=== PATIENT | female | born 1950 | race African-American/Black ===

== ENCOUNTER 2025-01-03 07:48 | Inpatient (IN) | payer OTHER, MEDICAID ==
[~2025-01-03] VITALS: Ht 165.1 cm; Wt 127.3 kg
[~2025-01-03 07:48] MED LIST: AMLO1TAB22 PO; HYDR-4798 PO
[2025-01-03 07:50] VITALS: PULSE 95; RESP 23; O2SAT 99
[2025-01-03] MEDS ORDERED: ALBUTEROL SULF 2.5 MG/0.5ML(0.5%) NEB SOLN NEB PRN (08:00)
[2025-01-03] MEDS ORDERED: DEXTROSE (50%) 50ML SYRG IV PRN (08:00)
[2025-01-03] MEDS ORDERED: IPRATROPIUM BROM 0.5 MG/2.5ML INH SOL NEB PRN (08:00)
[2025-01-03] MEDS ORDERED: CLON0.1T PO (08:01)
[2025-01-03] MEDS ORDERED: LEVO-177 PO (08:01)
[2025-01-03] MEDS ORDERED: ATOR20TA50 PO (08:01)
--- NOTE | 2025-01-03 08:05 | DVHHP2 ---
History of Present Illness Reason for Visit: Failure to thrive History of Present Illness Lexi Harris is a 74-year-old female with past medical history of hypertension, hyperlipidemia, diabetes type 2, asthma, and heart failure who presents to the ED with failure to thrive. Patient was a direct admit from [facility]. Patient is currently complaining of bilateral lower extremity pain states that it is 8/10 pressure-like and constant. She denies any recent trauma or injury. She states for about several months she has been having a poor appetite with no recent stressors or changes in her life. She also states that she walks without a walker however she attempts to try to use one when she needs to. She currently denies smoking, drug use, and alcohol use. Patient denies chest pain, shortness of breath, fever, chills, abdominal pain, nausea, vomiting, diarrhea, wheezing, recent ingestion of spoiled food, lightheadedness and dizziness. Patient also reports she is unsure when her last bowel movement was. Cardiovascular: CHF, HTN, hyperipidemia Pulmonary: Asthma Endocrine: Diabetes Family History: None Smoke: No ALCOHOL: none Drugs: None Domestic Violence: Neg Review of Systems Constitutional: Yes: Other (Poor appetite) Musculoskeletal: foot pain Allergies: Coded Allergies: NO KNOWN ALLERGIES (Unverified , 01/03/25) Medications Current Medications Medications Dose Ordered Sig/Ash Route Start Time Stop Time Status Last Admin Dose Admin Acetaminophen/ Hydrocodone Bitart 1 tab Q4HP PRN PO 01/03/25 08:00 UNV Ondansetron HCl 4 mg Q4HP PRN IV 01/03/25 08:00 UNV Enoxaparin Sodium 30 mg DAILY SC 01/03/25 10:00 UNV Acetaminophen 650 mg Q6HP PRN PO 01/03/25 08:00 UNV Colchicine 0.6 mg DAILY PO 01/03/25 10:00 UNV Ferrous Sulfate 325 mg BIDWM PO 01/03/25 08:00 UNV Diagnostic Test (Pha) 1 strip ACHS 01/03/25 11:30 UNV Insulin Human Regular ACHS SC 01/03/25 11:30 UNV Dextrose 50 ml UD PRN IV 01/03/25 08:00 UNV Albuterol 2.5 mg Q4HPRN PRN NEB 01/03/25 08:00 UNV Ipratropium [place] 0.5 mg Q4HPRN PRN NEB 01/03/25 08:00 UNV Exam General Appearance: Alert, Oriented X3, Cooperative, No acute distress HEENT: Atraumatic, PERRLA, EOMI, Mucous membr. moist/pink Respiratory: Clear to auscultation, Normal air movement Cardiovascular: Normal S1, Normal S2, No murmurs Abdominal: Normal bowel sounds, Soft, No tenderness, No hepatospenomegaly, No masses Extremities: No clubbing, No cyanosis, No edema, Normal pulses Neuro: Normal speech, Normal tone, Sensation intact Psych/Mental Status: Mental status NL, Mood NL Labs/Xrays CHEST RADIOGRAPH Indication: ftt Technique: Single frontal view of the chest was obtained Comparison: None FINDINGS: Lines and Tubes: None Lungs: No focal consolidation. Pleura: No effusion. No pneumothorax. Cardiomediastinal contours: Cardiomegaly Bones: No acute osseous abnormality. IMPRESSION: Cardiomegaly with mild CHF. Bilateral lower extremity venous duplex Clinical History: edema Comparison: None Technique: Duplex Doppler evaluation of the deep venous systems of both lower extremities from the common femoral veins to the popliteal veins including color Doppler and spectral/pulsed waveform analysis was performed. Findings: RIGHT SIDE: The common femoral vein demonstrates appropriate compressibility and waveform variability. There is compressibility/patency of the great saphenous vein at the proximal thigh. The femoral vein demonstrates appropriate compressibility and waveform variability. The deep femoral vein demonstrates appropriate compressibility and waveform variability. The popliteal vein demonstrates appropriate compressibility and waveform variability. There is normal compressibility at the tibioperoneal trunk. LEFT SIDE: The common femoral vein demonstrates appropriate compressibility and waveform variability. There is compressibility/patency of the great saphenous vein at the proximal thigh. The femoral vein demonstrates appropriate compressibility and waveform variability. The deep femoral vein demonstrates appropriate compressibility and waveform variability. The popliteal vein demonstrates appropriate compressibility and waveform variability. There is normal compressibility at the tibioperoneal trunk. Impression: No right or left femoropopliteal venous thrombosis. Assessment/Plan Assessment/Plan Assessment Failure to thrive Leukocytosis KASHIF Acute on chronic CHF exacerbation Cardiomegaly History of hypertension History of hyperlipidemia History of Diabetes type 2 History of asthma Plan Admit to med surge IV antibiotics-ceftriaxone Diurese Strict Is&Os Daily weight Resume home medications Dietary consult P.r.n. antihypertensives Hemoglobin A1c ISS and Accu-Cheks P.r.n. respiratory treatments Diet Ultrasound venous bilateral lower extremity Discussed plan of care with patient and nurse Nephrology consult CT abdomen and pelvis ordered Pending UA Plan discussed with: Patient My Orders Orders - LARRY PIPER [employer] Procedure Category Date Status Time Admit ADMIT 01/03/25 Transmitted 07:53 Allergies ARNOLDO 01/03/25 In Process 07:53 Code Status CODE 01/03/25 Transmitted 07:53 Hydrocodone-Acet PHA 01/03/25 Logged 5/325mg Tab ([place] 08:00 Ondansetron Hcl PHA 01/03/25 Logged (Zofran) 08:00 Complete Blood Count LAB 01/04/25 Verified 04:00 Comprehensive LAB 01/04/25 Verified Metabolic Panel 04:00 Enoxaparin Sodium PHA 01/03/25 Logged (Lovenox) 10:00 Acetaminophen Tablet PHA 01/03/25 Logged (Tylenol Tablet) 08:00 Chest Xray 1 View XY 01/03/25 Logged 07:55 Bilat Lower Dvt US 01/03/25 Logged 07:55 * Dietary Consult CONS 01/03/25 Transmitted 07:55 Colchicine (Colcrys) PHA 01/03/25 Logged 10:00 Ferrous Sulfate Tablet PHA 01/03/25 Logged 08:00 Glucose Blood PHA 01/03/25 Logged (Accu-Chek Comfort 11:30 Insulin R (Human) PHA 01/03/25 Logged (Insulin R) 11:30 Dextrose 50% Syringe PHA 01/03/25 Logged 08:00 Hemoglobin A1c LAB 01/03/25 Logged 07:56 Consistent DIET 01/03/25 Transmitted Carb(Ccho)Diabetes Breakfast Albuterol Medneb PHA 01/03/25 Logged (Ventolin Medneb) 08:00 Ipratropium Medneb PHA 01/03/25 Logged (Atrovent Medneb) 08:00 Strict I & O ARNOLDO 01/03/25 In Process 07:56 Daily Weight ARNOLDO 01/03/25 In Process 07:56 B-Type Natriuretic LAB 01/03/25 Logged Peptide 08:01 Complete Blood Count LAB 01/03/25 Logged 08:01 Comprehensive LAB 01/03/25 Logged Metabolic Panel 08:01 Urinalysis LAB 01/03/25 Logged 08:01 Electrocardigram EKG 01/03/25 Logged 08:01 Vitamin D 25-Hydroxy LAB 01/03/25 Verified D2 + D3 08:01 Vitamin B1 (Thiamine) LAB 01/03/25 Verified 08:01 Thyroid Stimulating LAB 01/03/25 Verified Hormone 08:01 Date of Service: Jan 03, 2025 Billing Provider: LARRY PIPER Common Visit Codes: [id number] INP/OBS CARE (HIGH) LARRY PIPER Jan 03, 2025 08:05
--- NOTE | 2025-01-03 08:33 | DVH ---
CHEST RADIOGRAPH Indication: ftt Technique: Single frontal view of the chest was obtained Comparison: None FINDINGS: Lines and Tubes: None Lungs: No focal consolidation. Pleura: No effusion. No pneumothorax. Cardiomediastinal contours: Cardiomegaly Bones: No acute osseous abnormality. IMPRESSION: Cardiomegaly with mild CHF.
--- NOTE | 2025-01-03 09:39 | DVH ---
Bilateral lower extremity venous duplex Clinical History: edema Comparison: None Technique: Duplex Doppler evaluation of the deep venous systems of both lower extremities from the common femora l veins to the popliteal veins including color Doppler and spectral/pulsed waveform analysis was perf ormed. Findings: RIGHT SIDE: The common femoral vein demonstrates appropriate compressibility and waveform variability. There is compressibility/patency of the great saphenous vein at the proximal thigh. The femoral vein demonstrates appropriate compressibility and waveform variability. The deep femoral vein demonstrates appropriate compressibility and waveform variability. The popliteal vein demonstrates appropriate compressibility and waveform variability. There is normal compressibility at the tibioperoneal trunk. LEFT SIDE: The common femoral vein demonstrates appropriate compressibility and waveform variability. There is compressibility/patency of the great saphenous vein at the proximal thigh. The femoral vein demonstrates appropriate compressibility and waveform variability. The deep femoral vein demonstrates appropriate compressibility and waveform variability. The popliteal vein demonstrates appropriate compressibility and waveform variability. There is normal compressibility at the tibioperoneal trunk. Impression: No right or left femoropopliteal venous thrombosis.
[2025-01-03 09:52] VITALS: PULSE 92; RESP 18; O2SAT 98
[2025-01-03] MEDS ORDERED: GABA-1250 PO (09:56)
[2025-01-03] MEDS ORDERED: ALLO300T2 PO (09:56)
[2025-01-03] MEDS ORDERED: METO-289 PO (09:56)
[2025-01-03 10:39] LABS: Basophils # (auto) 0.1 10 ^3/uL (0-0.2); Basophils % (auto) 0.7 % (0.0-2.0); Eosinophils # (auto) 0.2 10 ^3/uL (0-0.8); Eosinophils % (auto) 1.8 % (0.0-7.0); Hematocrit 38.2 % (36.0-46.0); Hemoglobin 12.1 g/dL (12.2-16.2); Lymphocytes # (auto) 2.2 10 ^3/uL (0.4-5.4); Lymphocytes % (auto) 19.6 % (10.0-50.0); Mean Corpuscular Hemoglobin 28.7 pg (28.0-32.0); Mean Corpuscular Hgb Conc. 31.7 g/dL (32.0-36.0); Mean Corpuscular Volume 90.4 fL (80.0-100.0); Monocytes # (auto) 1.4 10 ^3/uL (0-1.3); Monocytes % (auto) 12.3 % (0.0-12.0); Neutrophils # (auto) 7.3 10 ^3/uL (1.6-8.6); Neutrophils % (auto) 65.6 % (37.0-80.0); Nucleated Red Blood Cells % 0.1 %; Platelet Count (auto) 257 10^3/uL (140-450); Red Blood Cells 4.23 10^6/uL (4.0-5.20); Red Cell Distribution Width 17.3 % (11.8-14.3); White Blood Cell 11.1 10^3/uL (4.4-10.8)
[2025-01-03 10:48] VITALS: BP 151/100; PULSE 108; RESP 17; RESP 18; TEMP 98.5; O2SAT 94
[2025-01-03 10:58] LABS: Alanine Aminotransferase 19 U/L (7-40); Albumin 4.4 g/dL (3.2-4.8); Calcium 9.7 mg/dL (8.7-10.4); Chloride 105 mmol/L (98-107)
[2025-01-03 10:59] LABS: Anion Gap 8 (5-15); Aspartate Aminotransferase 14 U/L (13-40); BUN/Creatinine Ratio 17.2 (10.0-20.0); Bilirubin, Total 0.7 mg/dL (0.2-1.0); Carbon Dioxide 22 mmol/L (20-31); Potassium 4.2 mmol/L (3.5-5.1)
[2025-01-03] MEDS: ENOXAPARIN SOD 30 MG/0.3 ML SYRINGE SC SCH (11:00)
[2025-01-03] MEDS: FERROUS SULFATE 325mg EC TAB PO SCH (11:00)
[2025-01-03] MEDS: COLCHICINE 0.6 MG CAP PO SCH (11:00)
[2025-01-03] MEDS: LEVOTHYROXINE SODIUM 88 MCG TAB PO ONE (11:01)
[2025-01-03] MEDS: FUROSEMIDE 40 MG/4 ML VIAL IV SCH (11:01)
[2025-01-03 11:02] LABS: Alkaline Phosphatase 172 U/L (46-116); Blood Urea Nitrogen 27 mg/dL (9-23); Glucose 190 mg/dL (74-106); Sodium 135 mmol/L (136-145); Total Protein 8.5 g/dL (5.7-8.2)
[2025-01-03] MEDS ORDERED: ASPI-543 PO (11:20)
[2025-01-03] MEDS ORDERED: ALBU2TAB11 PO (11:20)
[2025-01-03] MEDS ORDERED: GLIM4TAB42 PO (11:20)
[2025-01-03] MEDS ORDERED: DIPH50CA31 PO (11:20)
[2025-01-03] MEDS ORDERED: CHOL500033 PO (11:20)
[2025-01-03] MEDS ORDERED: POTA-36 PO (11:20)
[2025-01-03] MEDS ORDERED: LORA-622 PO (11:20)
[2025-01-03] MEDS: ACCU-CHEK COMFORT CURVE STRIP VI SCH (11:22)
[2025-01-03] MEDS: cefTRIAXone 1GM/50ML D5W 50 ML IV ONE (12:01)
[2025-01-03] MEDS: InsuLIN REG 1unit/0.01ml Soln (100units/ml) SC SCH (12:03)
--- NOTE | 2025-01-03 12:08 | DVH ---
CT ABDOMEN AND PELVIS WITHOUT CONTRAST CLINICAL HISTORY: ftt TECHNIQUE: Multiple contiguous axial images of the abdomen and pelvis without intravenous contrast. T he images were reformatted degenerate coronal and sagittal reconstructions. All CT scans at this medical facility are performed using dose modulation techniques as appropriate t o a performed exam including the following:Automated exposure control was utilized; adjustment of the MA and/or KV according to patient size; and use of iterative reconstruction technique. Radiation Dose Information: CT Dose: CTDI volume is 27.84 mGy. Dose-length product is 1502.29 mGy*cm Comparison: None FINDINGS: Evaluation of the abdomen and pelvis is limited without intravenous contrast. Gallbladder is surgically absent. The liver, pancreas, kidneys, adrenal glands, and spleen appear within normal limits. There is no gross evidence of abdominal lymphadenopathy. There is no free fluid or free air. There is a small fat containing umbilical hernia. The stomach grossly appears unremarkable. The small and large bowel loops demonstrate normal caliber without evidence of bowel obstruction.. There are multiple diverticula in the colon without evidenc e of acute diverticulitis. A normal appearing appendix is seen in the right lower quadrant abdomen. The abdominal aorta and IVC appear within normal limits. The bladder appears unremarkable for the degree of distention. Pelvic organ appears within normal krishnan its. There is no gross evidence of a pelvic mass. There is no free fluid collection. Lung bases are clear. There is no acute osseous abnormality. IMPRESSION: 1. There is no acute process in the abdomen and pelvis. 2. Distal colon diverticulosis without evidence of acute diverticulitis. HS:Y
[2025-01-03 13:00] VITALS: BP 151/100; PULSE 108; RESP 17; TEMP 98.5; O2SAT 94
[2025-01-03] MEDS: cloNIDine HCL 0.1 MG TAB PO SCH (13:30)
[2025-01-03] MEDS: SODIUM CHLORIDE 0.9% 1,000 ML IV ONE (13:31)
[2025-01-03] MEDS: HYDROcodone-ACET 5/325MG TAB PO PRN (13:33)
[2025-01-03 14:16] LABS: Urine Bacteria FEW /hpf (None Seen); Urine Blood Negative /uL (Negative); Urine Clarity Clear (Clear); Urine Color Light-Yellow (Yellow); Urine Protein, UAD 1+ (Negative); Urine Specific Gravity 1.009 (1.001-1.035); Urine Squamous Epithelial Cell FEW /hpf (<5); Urine Urobilinogen Normal (Negative); Urine WBC < 1 /HPF (0-5); Urine pH 5.5 (5.0-9.0)
[2025-01-03 16:43] VITALS: BP 139/61; PULSE 113; RESP 18; TEMP 99; O2SAT 94
--- NOTE | 2025-01-03 17:03 | DVH ---
PROCEDURE: MRI LUMBAR SPINE WO CONTRAST INDICATION: Lumbar stenosis Exam Date: 01/03/2025 04:14 PM COMPARISON: None TECHNIQUE: MRI lumbar spine without intravenous contrast. FINDINGS: Grade 1 anterolisthesis of L4 on L5. There are degenerative endplate changes including modic endpla te changes with anterior and lateral osteophytes throughout the lumbar spine. Marrow signal is diffus dinh low. Focal high signal in the right iliac crest. The visualized distal spinal cord and conus medu llaris are within normal limits. The conus medullaris appears to terminate within normal limits. Th e visualized retroperitoneal and paraspinal soft tissues are unremarkable. The following axial levels are detailed below: T12-L1: There is a mild circumferential disc bulge. No significant central canal or neuroforaminal s tenosis. L1-L2: There is a mild circumferential disc bulge. No significant central canal or neuroforaminal s tenosis. L2-L3: There is a severe circumferential disc bulge complicated by facet arthropathy associated wit h mild to moderate right and moderate to severe left neuroforaminal stenosis. No significant central canal stenosis. L3-L4: There is a moderate circumferential disc bulge complicated by facet arthropathy associated w ith mild to moderate bilateral neuroforaminal stenosis. No significant central canal stenosis. L4-L5: There is a moderate circumferential disc bulge complicated by facet arthropathy associated w ith moderate bilateral neuroforaminal stenosis. Central canal measures 9 mm. L5-S1: There is a moderate circumferential disc bulge complicated by facet arthropathy associated wi th mild to moderate bilateral neuroforaminal stenosis. No significant central canal stenosis. IMPRESSION: 1. Multilevel degenerative disease. Grade 1 anterolisthesis of L4 on L5. Mild central canal stenosis L4-5. Neural foraminal stenosis worst at L2-3 as above. Marrow signal is diffusely low. Correlate for hematologic disorder. Focal high signal in the right iliac crest. A lesion is not excluded. This cou ld be further evaluated with whole-body bone scan. HS:Y
[2025-01-03] MEDS: ONDANSETRON HCL 4 MG/2 ML VIAL IV PRN (19:39)
--- NOTE | 2025-01-03 19:46 | DVHINCON2 ---
Date of service: Jan 03, 2025 Allergies: Coded Allergies: NO KNOWN ALLERGIES (Unverified , 01/03/25) Home Meds Reported Medications Albuterol Sulfate (Albuterol Sulfate) 2 Mg Tab, 90 MCG PO Q6HR, MG 01/03/25 Diphenhydramine Hcl (BANOPHEN) 50 Mg Cap, 25 MG PO Q6HR, CAP 01/03/25 Cholecalciferol (Vitamin D-3) 5,000 Unit Cap, 1000 UNIT PO DAILY, CAP 01/03/25 Aspirin (Aspir-Low) 81 Mg Tab, 81 MG PO DAILY for 30 Days, MG 01/03/25 Glimepiride (Glimepiride) 4 Mg Tab, 4 MG PO DAILY for 30 Days, MG 01/03/25 Potassium Chloride (POTASSIUM CHLORIDE CR) 10 Meq Tb, 8 MEQ PO DAILY, TAB 01/03/25 Loratadine (Claritin) 10 Mg Tab, 1 TAB PO DAILY, #30 TAB 5 Refills 01/03/25 Gabapentin (Gabapentin) 300 Mg Cap, 1 CAP PO TID 01/03/25 Allopurinol (Allopurinol) 300 Mg Tab, 1 TAB PO DAILY 01/03/25 Metoprolol Succinate (Metoprolol Succinate Er) 50 Mg Tab, 1 TAB PO DAILY 01/03/25 Atorvastatin Calcium (ATORVASTATIN CALCIUM) 20 Mg Tab, 20 MG PO DAILY 01/03/25 Clonidine Hydrochloride (Clonidine Hcl) 0.1 Mg Tab, 0.2 MG PO TID 01/03/25 Levothyroxine Sodium (Levothyroxine Sodium) 88 Mcg Tab, 1 TAB PO DAILY 01/03/25 Current Medications Current Medications Medications (Trade) Dose Ordered Sig/Ash Route PRN Reason Start Time Stop Time Status Last Admin Acetaminophen/ Hydrocodone Bitart ([place] 5/325MG Tab) 1 tab Q4HP PRN PO MODERATE PAIN (4-6 PAIN SCALE) 01/03/25 08:00 01/03/25 13:33 Ondansetron HCl (Zofran) 4 mg Q4HP PRN IV NAUSEA / VOMITING 01/03/25 08:00 01/03/25 19:39 Enoxaparin Sodium (Lovenox) 30 mg DAILY SC 01/03/25 10:00 01/03/25 11:00 Acetaminophen (Tylenol Tablet) 650 mg Q6HP PRN PO PAIN SCALE 1-3 OR TEMP>100.4 01/03/25 08:00 Colchicine (Colcrys) 0.6 mg DAILY PO 01/03/25 10:00 01/03/25 11:00 Ferrous Sulfate 325 mg BIDWM PO 01/03/25 08:00 01/03/25 18:46 Diagnostic Test (Pha) (Accu-Chek Comfort Curve T) 1 strip ACHS 01/03/25 11:30 01/03/25 17:00 Insulin Human Regular (InsuLIN R) ACHS SC 01/03/25 11:30 01/03/25 17:00 Dextrose 50 ml UD PRN IV Blood Sugar LESS THAN 60 01/03/25 08:00 Albuterol (Ventolin Medneb) 2.5 mg Q4HPRN PRN NEB SHORTNESS OF BREATH 01/03/25 08:00 Ipratropium [place] (Atrovent Medneb) 0.5 mg Q4HPRN PRN NEB SHORTNESS OF BREATH 01/03/25 08:00 Furosemide (Lasix Injection) 40 mg DAILY IV 01/03/25 10:00 01/03/25 11:01 Hydralazine HCl (Apresoline Injection) 10 mg Q6HP PRN IV SBP>150 01/03/25 10:00 Atorvastatin Calcium (Lipitor) 20 mg HS PO 01/03/25 22:00 Clonidine HCl (Catapres Tablet) 0.1 mg TID PO 01/03/25 14:00 01/03/25 13:30 Levothyroxine Sodium (Synthroid Tablet) 88 mcg DAILY@0600 PO 01/04/25 06:00 Ceftriaxone Sodium 50 ml @ 100 mls/hr DAILY@09 IV 01/04/25 09:00 H&P Exam Vital Signs/I&O Vital Sign Date Time Temp Pulse Resp B/P (MAP) Pulse Ox O2 Delivery O2 Flow Rate FiO2 01/03/25 16:43 99.0 113 18 139/61 (87) 94 99.0 01/03/25 10:48 Room Air* 0 21 Labs/Diagnostic Data Labs/Diagnostic Data Laboratory Tests Test 01/03/25 16:01 01/03/25 13:45 01/03/25 11:13 01/03/25 10:23 Range/Units Urine Color Light-yellow Yellow Urine Clarity Clear Clear Urine pH 5.5 5.0-9.0 Urine Specific [place] 1.009 1.001-1.035 Urine Protein 1+ H Negative Urine Ketones Negative Negative Urine Blood Negative Negative /uL Urine Nitrite Negative Negative Urine Bilirubin Negative Negative Urine Urobilinogen Normal Negative mg/dL Urine Leukocyte Esterase Negative Negative /uL Urine RBC <1 0 - 4 /hpf Urine Microscopic WBC < 1 0-5 /HPF Urine Squamous Epithelial Cells Few <5 /hpf Urine Bacteria Few H None Seen /hpf Urine Glucose Normal Normal mg/dL POC Glucose 193 H 70-106 mg/dl White Blood Count 11.1 H 4.4-10.8 10^3/uL Red Blood Count 4.23 4.0-5.20 10^6/uL Hemoglobin 12.1 L 12.2-16.2 g/dL Hematocrit 38.2 36.0-46.0 % Mean Corpuscular Volume 90.4 80.0-100.0 fL Mean Corpuscular Hemoglobin 28.7 28.0-32.0 pg Mean Corpuscular Hemoglobin Concent 31.7 L 32.0-36.0 g/dL Red Cell Distribution Width 17.3 H 11.8-14.3 % Platelet Count 257 140-450 10^3/uL Mean Platelet Volume 9.2 6.9-10.8 fL Neutrophils (%) (Auto) 65.6 37.0-80.0 % Lymphocytes (%) (Auto) 19.6 10.0-50.0 % Monocytes (%) (Auto) 12.3 H 0.0-12.0 % Eosinophils (%) (Auto) 1.8 0.0-7.0 % Basophils (%) (Auto) 0.7 0.0-2.0 % Neutrophils # (Auto) 7.3 1.6-8.6 10 ^3/uL Lymphocytes # (Auto) 2.2 0.4-5.4 10 ^3/uL Monocytes # (Auto) 1.4 H 0-1.3 10 ^3/uL Eosinophils # (Auto) 0.2 0-0.8 10 ^3/uL Basophils # (Auto) 0.1 0-0.2 10 ^3/uL Nucleated Red Blood Cells 0.1 % Sodium Level 135 L 136-145 mmol/L Potassium Level 4.2 3.5-5.1 mmol/L Chloride Level 105 98-107 mmol/L Carbon Dioxide Level 22 20-31 mmol/L Anion Gap 8 5-15 Blood Urea Nitrogen 27 H 9-23 mg/dL Creatinine 1.57 H 0.550-1.02 mg/dL Glomerular Filtration Rate Calc 35 >90 mL/min BUN/Creatinine Ratio 17.2 10.0-20.0 Serum Glucose 190 H 74-106 mg/dL Hemoglobin A1c 6.8 H <5.7 % A1C Calcium Level 9.7 8.7-10.4 mg/dL Total Bilirubin 0.7 0.2-1.0 mg/dL Aspartate Amino Transferase (AST) 14 13-40 U/L Alanine Aminotransferase (ALT) 19 7-40 U/L Alkaline Phosphatase 172 H 46-116 U/L B-Type Natriuretic Peptide 82.47 0-100 pg/mL Total Protein 8.5 H 5.7-8.2 g/dL Albumin 4.4 3.2-4.8 g/dL Vitamin B12 Level 339 211-911 pg/mL Thyroid Stimulating Hormone (TSH) 2.14 0.55-4.78 uIU/mL Assessment Please see above consult dictated Plan discussed with: AMINA Tariq MD Jan 03, 2025 19:46
--- NOTE | 2025-01-03 20:08 | DVHINCON2 ---
Date of service: Jan 03, 2025 Reason for Consultation kwame History of Present Illness 74 years old female with past medical history of hypertension, dyslipidemia, diabetes, morbid obesity, heart failure,, Chronic kidney disease presenting with chief complaints of unable to walk... Her [id number] is bedside she me ntions patient's legs gave up and she was unable to walk No baseline renal function available Past Medical History As per HPI Past Surgical History As per HPI Allergies: Coded Allergies: NO KNOWN ALLERGIES (Unverified , 01/03/25) Home Meds Reported Medications Albuterol Sulfate (Albuterol Sulfate) 2 Mg Tab, 90 MCG PO Q6HR, MG 01/03/25 Diphenhydramine Hcl (BANOPHEN) 50 Mg Cap, 25 MG PO Q6HR, CAP 01/03/25 Cholecalciferol (Vitamin D-3) 5,000 Unit Cap, 1000 UNIT PO DAILY, CAP 01/03/25 Aspirin (Aspir-Low) 81 Mg Tab, 81 MG PO DAILY for 30 Days, MG 01/03/25 Glimepiride (Glimepiride) 4 Mg Tab, 4 MG PO DAILY for 30 Days, MG 01/03/25 Potassium Chloride (POTASSIUM CHLORIDE CR) 10 Meq Tb, 8 MEQ PO DAILY, TAB 01/03/25 Loratadine (Claritin) 10 Mg Tab, 1 TAB PO DAILY, #30 TAB 5 Refills 01/03/25 Gabapentin (Gabapentin) 300 Mg Cap, 1 CAP PO TID 01/03/25 Allopurinol (Allopurinol) 300 Mg Tab, 1 TAB PO DAILY 01/03/25 Metoprolol Succinate (Metoprolol Succinate Er) 50 Mg Tab, 1 TAB PO DAILY 01/03/25 Atorvastatin Calcium (ATORVASTATIN CALCIUM) 20 Mg Tab, 20 MG PO DAILY 01/03/25 Clonidine Hydrochloride (Clonidine Hcl) 0.1 Mg Tab, 0.2 MG PO TID 01/03/25 Levothyroxine Sodium (Levothyroxine Sodium) 88 Mcg Tab, 1 TAB PO DAILY 01/03/25 Current Medications Current Medications Medications (Trade) Dose Ordered Sig/Ash Route PRN Reason Start Time Stop Time Status Last Admin Acetaminophen/ Hydrocodone Bitart (Lamar 5/325MG Tab) 1 tab Q4HP PRN PO MODERATE PAIN (4-6 PAIN SCALE) 01/03/25 08:00 01/03/25 13:33 Ondansetron HCl (Zofran) 4 mg Q4HP PRN IV NAUSEA / VOMITING 01/03/25 08:00 01/03/25 19:39 Enoxaparin Sodium (Lovenox) 30 mg DAILY SC 01/03/25 10:00 01/03/25 11:00 Acetaminophen (Tylenol Tablet) 650 mg Q6HP PRN PO PAIN SCALE 1-3 OR TEMP>100.4 01/03/25 08:00 Colchicine (Colcrys) 0.6 mg DAILY PO 01/03/25 10:00 01/03/25 11:00 Ferrous Sulfate 325 mg BIDWM PO 01/03/25 08:00 01/03/25 18:46 Diagnostic Test (Pha) (Accu-Chek Comfort Curve T) 1 strip ACHS 01/03/25 11:30 01/03/25 17:00 Insulin Human Regular (InsuLIN R) ACHS SC 01/03/25 11:30 01/03/25 17:00 Dextrose 50 ml UD PRN IV Blood Sugar LESS THAN 60 01/03/25 08:00 Albuterol (Ventolin Medneb) 2.5 mg Q4HPRN PRN NEB SHORTNESS OF BREATH 01/03/25 08:00 Ipratropium [place] (Atrovent Medneb) 0.5 mg Q4HPRN PRN NEB SHORTNESS OF BREATH 01/03/25 08:00 Furosemide (Lasix Injection) 40 mg DAILY IV 01/03/25 10:00 01/03/25 11:01 Hydralazine HCl (Apresoline Injection) 10 mg Q6HP PRN IV SBP>150 01/03/25 10:00 Atorvastatin Calcium (Lipitor) 20 mg HS PO 01/03/25 22:00 Clonidine HCl (Catapres Tablet) 0.1 mg TID PO 01/03/25 14:00 01/03/25 13:30 Levothyroxine Sodium (Synthroid Tablet) 88 mcg DAILY@0600 PO 01/04/25 06:00 Ceftriaxone Sodium 50 ml @ 100 mls/hr DAILY@09 IV 01/04/25 09:00 Social History Denies any Review of Systems As documented in HPI H&P Exam Vital Signs/I&O Vital Sign Date Time Temp Pulse Resp B/P (MAP) Pulse Ox O2 Delivery O2 Flow Rate FiO2 01/03/25 16:43 99.0 113 18 139/61 (87) 94 99.0 01/03/25 10:48 Room Air* 0 21 Physical Exam General-not in any distress, morbid obesity HEENT-normocephalic, no icterus, no pallor, neck supple Respiratory-fair air entry bilateral, [id number] heard, Abdominal-soft, nontender, nondistended Musculoskeletal-no pedal edema, no calf tenderness Genitourinary-deferred Neuro-awake alert oriented x3, Psychiatric-not agitated, cooperative, Labs/Diagnostic Data Labs/Diagnostic Data Laboratory Tests Test 01/03/25 16:01 01/03/25 13:45 01/03/25 11:13 01/03/25 10:23 Range/Units Urine Color Light-yellow Yellow Urine Clarity Clear Clear Urine pH 5.5 5.0-9.0 Urine Specific [place] 1.009 1.001-1.035 Urine Protein 1+ H Negative Urine Ketones Negative Negative Urine Blood Negative Negative /uL Urine Nitrite Negative Negative Urine Bilirubin Negative Negative Urine Urobilinogen Normal Negative mg/dL Urine Leukocyte Esterase Negative Negative /uL Urine RBC <1 0 - 4 /hpf Urine Microscopic WBC < 1 0-5 /HPF Urine Squamous Epithelial Cells Few <5 /hpf Urine Bacteria Few H None Seen /hpf Urine Glucose Normal Normal mg/dL POC Glucose 193 H 70-106 mg/dl White Blood Count 11.1 H 4.4-10.8 10^3/uL Red Blood Count 4.23 4.0-5.20 10^6/uL Hemoglobin 12.1 L 12.2-16.2 g/dL Hematocrit 38.2 36.0-46.0 % Mean Corpuscular Volume 90.4 80.0-100.0 fL Mean Corpuscular Hemoglobin 28.7 28.0-32.0 pg Mean Corpuscular Hemoglobin Concent 31.7 L 32.0-36.0 g/dL Red Cell Distribution Width 17.3 H 11.8-14.3 % Platelet Count 257 140-450 10^3/uL Mean Platelet Volume 9.2 6.9-10.8 fL Neutrophils (%) (Auto) 65.6 37.0-80.0 % Lymphocytes (%) (Auto) 19.6 10.0-50.0 % Monocytes (%) (Auto) 12.3 H 0.0-12.0 % Eosinophils (%) (Auto) 1.8 0.0-7.0 % Basophils (%) (Auto) 0.7 0.0-2.0 % Neutrophils # (Auto) 7.3 1.6-8.6 10 ^3/uL Lymphocytes # (Auto) 2.2 0.4-5.4 10 ^3/uL Monocytes # (Auto) 1.4 H 0-1.3 10 ^3/uL Eosinophils # (Auto) 0.2 0-0.8 10 ^3/uL Basophils # (Auto) 0.1 0-0.2 10 ^3/uL Nucleated Red Blood Cells 0.1 % Sodium Level 135 L 136-145 mmol/L Potassium Level 4.2 3.5-5.1 mmol/L Chloride Level 105 98-107 mmol/L Carbon Dioxide Level 22 20-31 mmol/L Anion Gap 8 5-15 Blood Urea Nitrogen 27 H 9-23 mg/dL Creatinine 1.57 H 0.550-1.02 mg/dL Glomerular Filtration Rate Calc 35 >90 mL/min BUN/Creatinine Ratio 17.2 10.0-20.0 Serum Glucose 190 H 74-106 mg/dL Hemoglobin A1c 6.8 H <5.7 % A1C Calcium Level 9.7 8.7-10.4 mg/dL Total Bilirubin 0.7 0.2-1.0 mg/dL Aspartate Amino Transferase (AST) 14 13-40 U/L Alanine Aminotransferase (ALT) 19 7-40 U/L Alkaline Phosphatase 172 H 46-116 U/L B-Type Natriuretic Peptide 82.47 0-100 pg/mL Total Protein 8.5 H 5.7-8.2 g/dL Albumin 4.4 3.2-4.8 g/dL Vitamin B12 Level 339 211-911 pg/mL Thyroid Stimulating Hormone (TSH) 2.14 0.55-4.78 uIU/mL Assessment Acute kidney injury versus Chronic kidney disease IIIb Diabetes Hypertension Morbid obesity Recommendations Quantify proteinuria CT scan no hydronephrosis No baseline renal function available Avoid NSAIDs SGLT2 inhibitor after discharge Plan discussed with: Patient, Daughter ALONJOHNNYCARLOSAMINA BARNEY Jan 03, 2025 20:07
[2025-01-03] MEDS: ACETAMINOPHEN 325 MG TAB PO PRN (20:18)
[2025-01-03 21:00] VITALS: BP 150/77; PULSE 123; RESP 20; TEMP 99.2; O2SAT 96
[2025-01-03] MEDS: ATORVASTATIN 20 MG TAB PO SCH (22:36)
[2025-01-04] VITALS (9 sets, daily range): BP systolic 98–163; BP diastolic 48–79; PULSE 89–113; RESP 17–20; TEMP 97.8–99.6; O2SAT 94–100
[2025-01-04 05:56] LABS: Basophils # (auto) 0 10 ^3/uL (0-0.2); Basophils % (auto) 0.4 % (0.0-2.0); Eosinophils # (auto) 0.2 10 ^3/uL (0-0.8); Eosinophils % (auto) 1.8 % (0.0-7.0); Hematocrit 32.9 % (36.0-46.0); Hemoglobin 10.9 g/dL (12.2-16.2); Lymphocytes # (auto) 2.8 10 ^3/uL (0.4-5.4); Lymphocytes % (auto) 28.2 % (10.0-50.0); Mean Corpuscular Hemoglobin 30.1 pg (28.0-32.0); Mean Corpuscular Hgb Conc. 33.2 g/dL (32.0-36.0); Mean Corpuscular Volume 90.8 fL (80.0-100.0); Monocytes # (auto) 1.4 10 ^3/uL (0-1.3); Monocytes % (auto) 14.3 % (0.0-12.0); Neutrophils # (auto) 5.5 10 ^3/uL (1.6-8.6); Neutrophils % (auto) 55.3 % (37.0-80.0); Nucleated Red Blood Cells % 0.1 %; Platelet Count (auto) 232 10^3/uL (140-450); Red Blood Cells 3.63 10^6/uL (4.0-5.20); Red Cell Distribution Width 16.8 % (11.8-14.3); White Blood Cell 9.9 10^3/uL (4.4-10.8)
[2025-01-04] MEDS: LEVOTHYROXINE SODIUM 88 MCG TAB PO SCH (06:01)
[2025-01-04 06:23] LABS: Alanine Aminotransferase 18 U/L (7-40); Anion Gap 11 (5-15); Aspartate Aminotransferase 16 U/L (13-40); BUN/Creatinine Ratio 14.2 (10.0-20.0); Calcium 9.1 mg/dL (8.7-10.4); Carbon Dioxide 20 mmol/L (20-31); Chloride 105 mmol/L (98-107); Potassium 4.5 mmol/L (3.5-5.1); Total Protein 7.8 g/dL (5.7-8.2)
[2025-01-04 06:24] LABS: Bilirubin, Total 0.3 mg/dL (0.2-1.0)
[2025-01-04 06:30] LABS: Alkaline Phosphatase 158 U/L (46-116); Blood Urea Nitrogen 35 mg/dL (9-23); Glucose 146 mg/dL (74-106); Sodium 136 mmol/L (136-145)
[2025-01-04] MEDS: cefTRIAXone 1GM/50ML D5W 50 ML IV SCH (08:33)
--- NOTE | 2025-01-04 11:10 | DVHPN2 ---
Progress Note Date Seen: Jan 04, 2025 Medical Necessity Reason Pt with a Central, PICC or Fol: Yes The following are medically ne: Caal Catheter Subjective Patient reports: Other Review of Systems: Deferred Objective vital signs Vital Sign Date Time Temp Pulse Resp B/P (MAP) Pulse Ox O2 Delivery O2 Flow Rate FiO2 01/04/25 09:32 98 Room Air 0.0 01/04/25 09:32 21 01/04/25 09:00 98.2 98 17 140/65 (90) 98.2 Total Intake and Output 01/03/25 01/03/25 01/04/25 15:00 23:00 07:00 Intake Total 600 ml 500 ml Output Total 502 ml Balance 600 ml -2 ml medications Current Medications Medications Dose Ordered Sig/Ash Route Start Time Stop Time Status Last Admin Dose Admin Acetaminophen/ Hydrocodone Bitart 1 tab Q4HP PRN PO 01/03/25 08:00 01/03/25 13:33 1 TAB Ondansetron HCl 4 mg Q4HP PRN IV 01/03/25 08:00 01/03/25 19:39 4 MG Enoxaparin Sodium 30 mg DAILY SC 01/03/25 10:00 01/04/25 08:35 30 MG Acetaminophen 650 mg Q6HP PRN PO 01/03/25 08:00 01/03/25 20:18 650 MG Ferrous Sulfate 325 mg BIDWM PO 01/03/25 08:00 01/04/25 08:33 325 MG Diagnostic Test (Pha) 1 strip ACHS 01/03/25 11:30 01/04/25 06:11 1 STRIP Insulin Human Regular ACHS SC 01/03/25 11:30 01/03/25 22:33 3 UNITS Dextrose 50 ml UD PRN IV 01/03/25 08:00 Albuterol 2.5 mg Q4HPRN PRN NEB 01/03/25 08:00 Ipratropium [place] 0.5 mg Q4HPRN PRN NEB 01/03/25 08:00 Hydralazine HCl 10 mg Q6HP PRN IV 01/03/25 10:00 Atorvastatin Calcium 20 mg HS PO 01/03/25 22:00 01/03/25 22:36 20 MG Clonidine HCl 0.1 mg TID PO 01/03/25 14:00 01/03/25 22:29 0.1 MG Levothyroxine Sodium 88 mcg DAILY@0600 PO 01/04/25 06:00 01/04/25 06:01 88 MCG Ceftriaxone Sodium 50 ml @ 100 mls/hr DAILY@09 IV 01/04/25 09:00 01/04/25 08:33 100 MLS/HR laboratory and microbiology Laboratory Tests 01/04/25 04:55 Test 01/04/25 04:55 Range/Units Serum Glucose 146 H 74-106 mg/dL Problem List/Assessment/Plan Problem List/Assessment/Plan Acute kidney injury versus Chronic kidney disease IIIb--unknown baseline Diabetes Hypertension Morbid obesity Recommendations Quantify proteinuria,kidney us hold colchicine and lasix ns for 1 liter strict i and o No baseline renal function available Plan discussed with: Patient My Orders My Orders Orders - AMINA PEÑA MD Procedure Category Date Status Time Urine Protein LAB 01/04/25 Logged 11:05 Urine Sodium LAB 01/04/25 Logged 11:05 Urine Creatinine LAB 01/04/25 Logged 11:05 Kidney US 01/04/25 Logged 11:05 Basic Metabolic Panel LAB 01/05/25 Verified 05:00 Basic Metabolic Panel LAB 01/06/25 Verified 05:00 Basic Metabolic Panel LAB 01/07/25 Verified 05:00 Basic Metabolic Panel LAB 01/08/25 Verified 05:00 Basic Metabolic Panel LAB 01/09/25 Verified 05:00 Basic Metabolic Panel LAB 01/10/25 Verified 05:00 Basic Metabolic Panel LAB 01/11/25 Verified 05:00 Sodium Chloride 0.9% PHA 01/04/25 Logged 11:15 AMINA PEÑA MD Jan 04, 2025 11:10
[2025-01-04] MEDS: hydrALAZINE HCL 20 MG/ML VL IV PRN (11:58)
[2025-01-04] MEDS: SODIUM CHLORIDE 0.9% 1,000 ML IV ONE (11:58)
--- NOTE | 2025-01-04 12:45 | DVHPN2 ---
Reviewed: Care Plan, H&P, Labs, Medications, Previous Orders, Radiology Changes from previous H/P or p: No Changes Musculoskeletal: foot pain Objective Vitals Vital Signs Date Time Temp Pulse Resp B/P (MAP) Pulse Ox O2 Delivery O2 Flow Rate FiO2 01/04/25 11:58 157/79 01/04/25 09:32 98 Room Air 0.0 01/04/25 09:32 21 01/04/25 09:00 98.2 98 17 98.2 Intake/Output Intake and Output 01/04/25 07:00 Intake Total 1100 ml Output Total 502 ml Balance 598 ml Intake Oral 800 ml IV Total 300 ml Output Urine Total 500 ml Stool Total 2 ml # Voids 3 Medications Current Medications Medications Dose Ordered Sig/Ash Route Start Time Stop Time Status Last Admin Dose Admin Acetaminophen/ Hydrocodone Bitart 1 tab Q4HP PRN PO 01/03/25 08:00 01/03/25 13:33 1 TAB Ondansetron HCl 4 mg Q4HP PRN IV 01/03/25 08:00 01/03/25 19:39 4 MG Enoxaparin Sodium 30 mg DAILY SC 01/03/25 10:00 01/04/25 08:35 30 MG Acetaminophen 650 mg Q6HP PRN PO 01/03/25 08:00 01/03/25 20:18 650 MG Ferrous Sulfate 325 mg BIDWM PO 01/03/25 08:00 01/04/25 08:33 325 MG Diagnostic Test (Pha) 1 strip ACHS 01/03/25 11:30 01/04/25 11:40 1 STRIP Insulin Human Regular ACHS SC 01/03/25 11:30 01/04/25 11:41 3 UNITS Dextrose 50 ml UD PRN IV 01/03/25 08:00 Albuterol 2.5 mg Q4HPRN PRN NEB 01/03/25 08:00 Ipratropium [place] 0.5 mg Q4HPRN PRN NEB 01/03/25 08:00 Hydralazine HCl 10 mg Q6HP PRN IV 01/03/25 10:00 01/04/25 11:58 10 MG Atorvastatin Calcium 20 mg HS PO 01/03/25 22:00 01/03/25 22:36 20 MG Clonidine HCl 0.1 mg TID PO 01/03/25 14:00 01/03/25 22:29 0.1 MG Levothyroxine Sodium 88 mcg DAILY@0600 PO 01/04/25 06:00 01/04/25 06:01 88 MCG Ceftriaxone Sodium 50 ml @ 100 mls/hr DAILY@09 IV 01/04/25 09:00 01/04/25 08:33 100 MLS/HR Laboratory Results Laboratory Tests 01/04/25 04:55 Chemistry Test 01/04/25 04:55 Albumin 4.0 g/dL (3.2-4.8) Calcium Level 9.1 mg/dL (8.7-10.4) Total Protein 7.8 g/dL (5.7-8.2) LFT Test 01/04/25 04:55 Alanine Aminotransferase (ALT) 18 U/L (7-40) Alkaline Phosphatase 158 U/L (46-116) H Aspartate Amino Transferase (AST) 16 U/L (13-40) Total Bilirubin 0.3 mg/dL (0.2-1.0) Urinalysis Test 01/03/25 13:45 Urine Color Light-yellow (Yellow) Urine Clarity Clear (Clear) Urine pH 5.5 (5.0-9.0) Urine Specific [place] 1.009 (1.001-1.035) Urine Protein 1+ (Negative) H Urine Ketones Negative (Negative) Urine Blood Negative /uL (Negative) Urine Nitrite Negative (Negative) Urine Bilirubin Negative (Negative) Urine Urobilinogen Normal mg/dL (Negative) Urine Leukocyte Esterase Negative /uL (Negative) Urine RBC <1 /hpf (0 - 4) Urine Microscopic WBC < 1 /HPF (0-5) Urine Squamous Epithelial Cells Few /hpf (<5) Urine Bacteria Few /hpf (None Seen) H Urine Glucose Normal mg/dL (Normal) Labs and/or images reviewed: Labs reviewed by me, Image(s) reviewed by me Assessment/Plan Assessment/Plan Transferred from [facility] Failure to thrive Leukocytosis KASHIF nephrology consult appreciate Acute on chronic CHF exacerbation Cardiomegaly Hypertension Hyperlipidemia Diabetes type 2 Asthma Unable to walk: CT head Neurology consult physical therapy Patient's son bedside DVT ruled out Chest x-ray negative CT abdomen pelvis without contrast negative Time 70 minutes Patient is full code Advanced care planning time 20 minutes Plan discussed with: Patient Date of Service: Jan 04, 2025 Billing Provider: ANISA THORNTON MD Common Visit Codes: [id number] INP/OBS CARE(HIGH) ANISA THORNTON MD Jan 04, 2025 12:45
--- NOTE | 2025-01-04 13:20 | DVH ---
INDICATION: kwame TECHNIQUE: Multiple real-time sonographic images of the kidneys and bladder were obtained. COMPARISON: None FINDINGS: The right kidney measures 10.5 cm in length, which is normal in size. There is normal echog enicity of the right kidney. No hydronephrosis. The left kidney measures 11.3 cm in length, which is normal in size. There is normal echogenicity of the left kidney. No hydronephrosis. There is a Caal catheter in the urinary bladder. IMPRESSION: 1. No hydronephrosis. 2. Caal catheter in the urinary bladder.
--- NOTE | 2025-01-04 14:21 | DVH ---
EXAM: CT HEAD WITHOUT CONTRAST INDICATION: GAIT AND STABILITY TECHNIQUE: CT of the head without intravenous contrast. Coronal and sagittal reformatted images are s ubmitted. Radiation Dose : 1. Head: CT Dose: CTDI volume is 65.77 mGy. Dose-length product is 1053.99 mGy*cm The dose indicators for CT are the volume Computed Tomography (CT) Dose Index (CTDIvol) and the Dose Length Product (DLP), and are measured in units of mGy and mGy-cm, respectively. These indicators are not patient dose, but values generated from the CT scanner acquisition factors. The report includes radiation exposure data for exposures received during this examination. All CT scans at this medical facility are performed using dose modulation techniques as appropriate to a performed exam including the following: Automated exposure control was utilized; adjustment of the MA and/or KV according to patient size; and use of iterative reconstruction technique. COMPARISON: None FINDINGS: There is no evidence of acute intracranial hemorrhage, extra-axial collection, mass effect, midline s hift, herniation or hydrocephalus. The ventricles, sulci and cisterns are age appropriate. The dhillon-white differentiation is intact. There is mucosal thickening in the left maxillary sinus. No depressed calvarial fracture. The surrounding soft tissues are unremarkable. IMPRESSION: 1. No evidence of acute intracranial abnormality.
[2025-01-05] VITALS (10 sets, daily range): BP systolic 134–140; BP diastolic 59–91; PULSE 82–123; RESP 16–19; TEMP 97.6–98.9; O2SAT 94–96
[2025-01-05 06:59] LABS: Anion Gap 14 (5-15); Chloride 104 mmol/L (98-107); Potassium 4.3 mmol/L (3.5-5.1)
[2025-01-05 07:00] LABS: Calcium 9.1 mg/dL (8.7-10.4)
[2025-01-05 07:05] LABS: BUN/Creatinine Ratio 19.3 (10.0-20.0)
[2025-01-05 07:12] LABS: Blood Urea Nitrogen 40 mg/dL (9-23); Carbon Dioxide 18 mmol/L (20-31); Glucose 152 mg/dL (74-106); Sodium 136 mmol/L (136-145)
--- NOTE | 2025-01-05 12:37 | DVHPN2 ---
Reviewed: Care Plan, H&P, Labs, Medications, Previous Orders, Radiology Changes from previous H/P or p: No Changes Musculoskeletal: foot pain Objective Vitals Vital Signs Date Time Temp Pulse Resp B/P (MAP) Pulse Ox O2 Delivery O2 Flow Rate FiO2 01/05/25 09:00 98.0 123 19 140/88 (105) 96 98.0 01/05/25 06:55 Room Air 0.0 01/05/25 06:55 21 Intake/Output Intake and Output 01/05/25 07:00 Intake Total 1375 ml Output Total 1500 ml Balance -125 ml Intake Oral 900 ml IV Total 475 ml Output Urine Total 1500 ml # Bowel Movements 2 Medications Current Medications Medications Dose Ordered Sig/Ash Route Start Time Stop Time Status Last Admin Dose Admin Acetaminophen/ Hydrocodone Bitart 1 tab Q4HP PRN PO 01/03/25 08:00 01/03/25 13:33 1 TAB Ondansetron HCl 4 mg Q4HP PRN IV 01/03/25 08:00 01/03/25 19:39 4 MG Enoxaparin Sodium 30 mg DAILY SC 01/03/25 10:00 01/04/25 08:35 30 MG Acetaminophen 650 mg Q6HP PRN PO 01/03/25 08:00 01/03/25 20:18 650 MG Ferrous Sulfate 325 mg BIDWM PO 01/03/25 08:00 01/04/25 17:19 325 MG Diagnostic Test (Pha) 1 strip ACHS 01/03/25 11:30 01/05/25 06:21 1 STRIP Insulin Human Regular ACHS SC 01/03/25 11:30 01/05/25 06:21 3 UNITS Dextrose 50 ml UD PRN IV 01/03/25 08:00 Albuterol 2.5 mg Q4HPRN PRN NEB 01/03/25 08:00 Ipratropium [place] 0.5 mg Q4HPRN PRN NEB 01/03/25 08:00 Hydralazine HCl 10 mg Q6HP PRN IV 01/03/25 10:00 01/04/25 21:22 10 MG Atorvastatin Calcium 20 mg HS PO 01/03/25 22:00 01/04/25 21:21 20 MG Clonidine HCl 0.1 mg TID PO 01/03/25 14:00 01/05/25 05:07 0.1 MG Levothyroxine Sodium 88 mcg DAILY@0600 PO 01/04/25 06:00 01/05/25 05:06 88 MCG Ceftriaxone Sodium 50 ml @ 100 mls/hr DAILY@09 IV 01/04/25 09:00 01/04/25 08:33 100 MLS/HR Laboratory Results Laboratory Tests 01/04/25 04:55 01/05/25 04:46 Chemistry Test 01/05/25 04:46 Calcium Level 9.1 mg/dL (8.7-10.4) Urinalysis Test 01/03/25 13:45 Urine Color Light-yellow (Yellow) Urine Clarity Clear (Clear) Urine pH 5.5 (5.0-9.0) Urine Specific [place] 1.009 (1.001-1.035) Urine Protein 1+ (Negative) H Urine Ketones Negative (Negative) Urine Blood Negative /uL (Negative) Urine Nitrite Negative (Negative) Urine Bilirubin Negative (Negative) Urine Urobilinogen Normal mg/dL (Negative) Urine Leukocyte Esterase Negative /uL (Negative) Urine RBC <1 /hpf (0 - 4) Urine Microscopic WBC < 1 /HPF (0-5) Urine Squamous Epithelial Cells Few /hpf (<5) Urine Bacteria Few /hpf (None Seen) H Urine Glucose Normal mg/dL (Normal) Microbiology Microbiology Date/Time Source Procedure Growth Status 01/03/25 12:45 Nose MRSA Screen - Final Complete Labs and/or images reviewed: Labs reviewed by me, Image(s) reviewed by me Assessment/Plan Assessment/Plan Transferred from [facility] Failure to thrive Leukocytosis KASHIF nephrology consult appreciate Acute on chronic CHF exacerbation Cardiomegaly Hypertension Hyperlipidemia Diabetes type 2 Asthma Unable to walk: CT head Neurology consult physical therapy Patient's son bedside DVT ruled out Chest x-ray negative CT abdomen pelvis without contrast negative Time 50 minutes Plan discussed with: Patient My Orders Orders - ANISA THORNTON MD Procedure Category Date Status Time Sequential ARNOLDO 01/04/25 In Process Compression Device 12:45 Pt Request For Service PT 01/04/25 Logged 12:[address] 01/04/25 Resulted 12:45 * Neurology Consult CONS 01/04/25 Transmitted 12:50 Date of Service: Jan 05, 2025 Billing Provider: ANISA THORNTON MD Common Visit Codes: [id number] INP/OBS CARE(HIGH) ANISA THORNTON MD Jan 05, 2025 12:37
--- NOTE | 2025-01-05 15:21 | DVHPN2 ---
Progress Note Date Seen: Jan 05, 2025 Medical Necessity Reason Pt with a Central, PICC or Fol: Yes The following are medically ne: Caal Catheter Subjective Patient reports: No new complaints Review of Systems: Deferred Objective vital signs Vital Sign Date Time Temp Pulse Resp B/P (MAP) Pulse Ox O2 Delivery O2 Flow Rate FiO2 01/05/25 13:40 142/75 01/05/25 13:15 98.1 109 19 96 98.1 01/05/25 06:55 Room Air 0.0 01/05/25 06:55 21 Total Intake and Output 01/04/25 01/04/25 01/05/25 15:00 23:00 07:00 Intake Total 850 ml 525 ml Output Total 1000 ml 500 ml Balance -150 ml 25 ml medications Current Medications Medications Dose Ordered Sig/Ash Route Start Time Stop Time Status Last Admin Dose Admin Acetaminophen/ Hydrocodone Bitart 1 tab Q4HP PRN PO 01/03/25 08:00 01/05/25 13:25 1 TAB Ondansetron HCl 4 mg Q4HP PRN IV 01/03/25 08:00 01/03/25 19:39 4 MG Enoxaparin Sodium 30 mg DAILY SC 01/03/25 10:00 01/05/25 12:38 30 MG Acetaminophen 650 mg Q6HP PRN PO 01/03/25 08:00 01/03/25 20:18 650 MG Ferrous Sulfate 325 mg BIDWM PO 01/03/25 08:00 01/05/25 12:38 325 MG Diagnostic Test (Pha) 1 strip ACHS 01/03/25 11:30 01/05/25 11:30 1 STRIP Insulin Human Regular ACHS SC 01/03/25 11:30 01/05/25 13:02 3 UNITS Dextrose 50 ml UD PRN IV 01/03/25 08:00 Albuterol 2.5 mg Q4HPRN PRN NEB 01/03/25 08:00 Ipratropium [place] 0.5 mg Q4HPRN PRN NEB 01/03/25 08:00 Hydralazine HCl 10 mg Q6HP PRN IV 01/03/25 10:00 01/04/25 21:22 10 MG Atorvastatin Calcium 20 mg HS PO 01/03/25 22:00 01/04/25 21:21 20 MG Clonidine HCl 0.1 mg TID PO 01/03/25 14:00 01/05/25 12:40 0.1 MG Levothyroxine Sodium 88 mcg DAILY@0600 PO 01/04/25 06:00 01/05/25 05:06 88 MCG Ceftriaxone Sodium 50 ml @ 100 mls/hr DAILY@09 IV 01/04/25 09:00 01/04/25 08:33 100 MLS/HR laboratory and microbiology Laboratory Tests 01/05/25 04:46 01/04/25 04:55 Test 01/05/25 04:46 Range/Units Serum Glucose 152 H 74-106 mg/dL Microbiology Date/Time Source Procedure Growth Status 01/03/25 12:45 Nose MRSA Screen - Final Complete Problem List/Assessment/Plan Problem List/Assessment/Plan Acute kidney injury versus Chronic kidney disease IIIb--hemodynamic mediated etiology unknown baseline Diabetes Hypertension Morbid obesity Recommendations Quantify proteinuria,kidney us no hydronephrosis hold colchicine and lasix Renal function slightly better strict i and o No baseline renal function available Plan discussed with: Patient Dietary Evaluation Review Recommendations by RD: Protein Supplementation Comments: 1) Initiate Glucerna 1.2 @ 8 fl oz bid d/t decreased PO intake 2) Encourage PO intake - consider staff to assist d/t weakness 3) Follow up with nephrology and neurology 4) Refer to outpatient RD/CDCES for weight management Expected Outcomes/Goals: 1) Appetite and labs to improve 2) f/u in 5 days AMINA PEÑA MD Jan 05, 2025 15:21
[2025-01-06] VITALS (9 sets, daily range): BP systolic 139–148; BP diastolic 62–75; PULSE 81–110; RESP 16–20; TEMP 97.7–98.4; O2SAT 92–97
[2025-01-06 06:27] LABS: Chloride 106 mmol/L (98-107); Potassium 4.6 mmol/L (3.5-5.1)
[2025-01-06 06:28] LABS: Anion Gap 10 (5-15); Calcium 9.5 mg/dL (8.7-10.4)
[2025-01-06 06:33] LABS: BUN/Creatinine Ratio 27.1 (10.0-20.0)
[2025-01-06 06:34] LABS: Blood Urea Nitrogen 45 mg/dL (9-23); Carbon Dioxide 19 mmol/L (20-31); Glucose 164 mg/dL (74-106); Sodium 135 mmol/L (136-145)
[2025-01-06 06:35] LABS: Magnesium 1.4 mg/dL (1.6-2.6); Phosphorus 3.2 mg/dL (2.4-5.1)
--- NOTE | 2025-01-06 12:13 | DVHPN2 ---
Reviewed: Care Plan, H&P, Labs, Medications, Previous Orders, Radiology Changes from previous H/P or p: No Changes Musculoskeletal: foot pain Objective Vitals Vital Signs Date Time Temp Pulse Resp B/P (MAP) Pulse Ox O2 Delivery O2 Flow Rate FiO2 01/06/25 08:59 81 16 139/68 97 01/06/25 08:40 Room Air 0.0 01/06/25 08:40 21 01/06/25 05:00 98.4 98.4 Intake/Output Intake and Output 01/06/25 07:00 Intake Total 900 ml Output Total 1100 ml Balance -200 ml Intake Oral 900 ml Output Urine Total 1100 ml # Bowel Movements 2 Medications Current Medications Medications Dose Ordered Sig/Ash Route Start Time Stop Time Status Last Admin Dose Admin Acetaminophen/ Hydrocodone Bitart 1 tab Q4HP PRN PO 01/03/25 08:00 01/06/25 10:55 1 TAB Ondansetron HCl 4 mg Q4HP PRN IV 01/03/25 08:00 01/03/25 19:39 4 MG Enoxaparin Sodium 30 mg DAILY SC 01/03/25 10:00 01/06/25 10:55 30 MG Acetaminophen 650 mg Q6HP PRN PO 01/03/25 08:00 01/03/25 20:18 650 MG Ferrous Sulfate 325 mg BIDWM PO 01/03/25 08:00 01/06/25 10:54 325 MG Diagnostic Test (Pha) 1 strip ACHS 01/03/25 11:30 01/06/25 11:10 1 STRIP Insulin Human Regular ACHS SC 01/03/25 11:30 01/06/25 11:12 3 UNITS Dextrose 50 ml UD PRN IV 01/03/25 08:00 Albuterol 2.5 mg Q4HPRN PRN NEB 01/03/25 08:00 Ipratropium [place] 0.5 mg Q4HPRN PRN NEB 01/03/25 08:00 Hydralazine HCl 10 mg Q6HP PRN IV 01/03/25 10:00 01/04/25 21:22 10 MG Atorvastatin Calcium 20 mg HS PO 01/03/25 22:00 01/05/25 21:38 20 MG Clonidine HCl 0.1 mg TID PO 01/03/25 14:00 01/06/25 05:17 0.1 MG Levothyroxine Sodium 88 mcg DAILY@0600 PO 01/04/25 06:00 01/06/25 05:17 88 MCG Ceftriaxone Sodium 50 ml @ 100 mls/hr DAILY@09 IV 01/04/25 09:00 01/06/25 10:56 100 MLS/HR Laboratory Results Laboratory Tests 01/04/25 04:55 01/06/25 05:35 Chemistry Test 01/06/25 05:35 Calcium Level 9.5 mg/dL (8.7-10.4) Magnesium Level 1.4 mg/dL (1.6-2.6) L Phosphorus Level 3.2 mg/dL (2.4-5.1) Urinalysis Test 01/03/25 13:45 Urine Color Light-yellow (Yellow) Urine Clarity Clear (Clear) Urine pH 5.5 (5.0-9.0) Urine Specific Adams 1.009 (1.001-1.035) Urine Protein 1+ (Negative) H Urine Ketones Negative (Negative) Urine Blood Negative /uL (Negative) Urine Nitrite Negative (Negative) Urine Bilirubin Negative (Negative) Urine Urobilinogen Normal mg/dL (Negative) Urine Leukocyte Esterase Negative /uL (Negative) Urine RBC <1 /hpf (0 - 4) Urine Microscopic WBC < 1 /HPF (0-5) Urine Squamous Epithelial Cells Few /hpf (<5) Urine Bacteria Few /hpf (None Seen) H Urine Glucose Normal mg/dL (Normal) Microbiology Microbiology Date/Time Source Procedure Growth Status 01/03/25 12:45 Nose MRSA Screen - Final Complete Labs and/or images reviewed: Labs reviewed by me, Image(s) reviewed by me Assessment/Plan Assessment/Plan Transferred from [facility] Failure to thrive Leukocytosis KASHIF nephrology consult appreciate Acute on chronic CHF exacerbation Cardiomegaly Hypertension Hyperlipidemia Diabetes type 2 Asthma Unable to walk: CT head neg, Neurology consult for [place] pending, physical therapy Patient's son bedside DVT ruled out Chest x-ray negative CT abdomen pelvis without contrast negative Time 50 minutes Plan discussed with: Patient My Orders Orders - ANISA THORNTON MD Procedure Category Date Status Time Pt Request For Service PT 01/05/25 Logged 12:36 Date of Service: Jan 06, 2025 Billing Provider: ANISA THORNTON MD Common Visit Codes: [id number] INP/OBS CARE(HIGH) ANISA THORNTON MD Jan 06, 2025 12:13
[2025-01-06] MEDS ORDERED: INSU100I4 SC (15:01)
--- NOTE | 2025-01-06 16:05 | DVHPNRES ---
Progress Note Date Seen: Jan 06, 2025 Resident Creating Document: ZACHARY HERNANDEZ RESIDENT Medical Necessity Reason Pt with a Central, PICC or Fol: Yes The following are medically ne: Caal Catheter Subjective Patient reports: Feels better Other Systems: Patient seen and examined by myself today on rounds with the medicine resident, I agree with his assessment and plan as documented in this note Objective vital signs Vital Sign Date Time Temp Pulse Resp B/P (MAP) Pulse Ox O2 Delivery O2 Flow Rate FiO2 01/06/25 15:19 162/78 01/06/25 13:00 97.7 110 20 95 97.7 01/06/25 08:40 Room Air 0.0 01/06/25 08:40 21 Total Intake and Output 01/05/25 01/05/25 01/06/25 15:00 23:00 07:00 Intake Total 500 ml 400 ml Output Total 500 ml 600 ml Balance 0 ml -200 ml medications Current Medications Medications Dose Ordered Sig/Ash Route Start Time Stop Time Status Last Admin Dose Admin Acetaminophen/ Hydrocodone Bitart 1 tab Q4HP PRN PO 01/03/25 08:00 01/06/25 10:55 1 TAB Ondansetron HCl 4 mg Q4HP PRN IV 01/03/25 08:00 01/03/25 19:39 4 MG Enoxaparin Sodium 30 mg DAILY SC 01/03/25 10:00 01/06/25 10:55 30 MG Acetaminophen 650 mg Q6HP PRN PO 01/03/25 08:00 01/03/25 20:18 650 MG Ferrous Sulfate 325 mg BIDWM PO 01/03/25 08:00 01/06/25 10:54 325 MG Diagnostic Test (Pha) 1 strip ACHS 01/03/25 11:30 01/06/25 11:10 1 STRIP Insulin Human Regular ACHS SC 01/03/25 11:30 01/06/25 11:12 3 UNITS Dextrose 50 ml UD PRN IV 01/03/25 08:00 Hydralazine HCl 10 mg Q6HP PRN IV 01/03/25 10:00 01/04/25 21:22 10 MG Atorvastatin Calcium 20 mg HS PO 01/03/25 22:00 01/05/25 21:38 20 MG Clonidine HCl 0.1 mg TID PO 01/03/25 14:00 01/06/25 15:19 0.1 MG Levothyroxine Sodium 88 mcg DAILY@0600 PO 01/04/25 06:00 01/06/25 05:17 88 MCG Ceftriaxone Sodium 50 ml @ 100 mls/hr DAILY@09 IV 01/04/25 09:00 01/06/25 10:56 100 MLS/HR Examination: GENERAL:Normal, HEENT:Normal, NECK:Normal, LUNGS:Normal, CVS:Normal, ABDOMEN:Normal, MSK:Normal, SKIN:Normal, NEURO:Normal laboratory and microbiology Laboratory Tests 01/06/25 05:35 01/04/25 04:55 Test 01/06/25 05:35 Range/Units Serum Glucose 164 H 74-106 mg/dL Microbiology Date/Time Source Procedure Growth Status 01/03/25 12:45 Nose MRSA Screen - Final Complete Labs and/or images reviewed: Labs reviewed by me, Image(s) reviewed by me Problem List/Assessment/Plan Problem List/Assessment/Plan Nephrology Consult/ Progress Note: Assessment: #Acute kidney injury due to VMN, hemodynamic mediated etiology #Likely Chronic kidney disease IIIb # Diabetes type II #Obesity grade III #Mild proteinuria Findings: #GFR: 32 #Creatinine: 1.57>2.46>2.07>1.66 #I&O: 900-1100= -200 #Urinalysis unremarkable #US renal: No hydronephrosis. Caal catheter in the urinary bladder. Plan: #continue to hold colchicine and lasix, good urine output. #Strict I&O and check Daily weight.Avoid Nephrotoxics ,Avoid hyper/hypo tension ,Fluid Restriction. #Daily BMP, and close follow up. #Blood pressure control target BP 130/80 or below in adult diabetic as per AHA/ACC guidelines. #Rest of the management as per primary team. Thank you for the opportunity to follow up on your patient. In case of any question feel free to reach out to the Nephrology team. Discussed with Nephrology attending Dr. Bergeron. Plan discussed with: Patient, Other (primary team. ) Dietary Evaluation Review Recommendations by RD: Protein Supplementation Comments: 1) Initiate Glucerna 1.2 @ 8 fl oz bid d/t decreased PO intake 2) Encourage PO intake - consider staff to assist d/t weakness 3) Follow up with nephrology and neurology 4) Refer to outpatient RD/CDCES for weight management Expected Outcomes/Goals: 1) Appetite and labs to improve 2) f/u in 5 days ZACHARY HERNANDEZ Jan 06, 2025 16:05 LILIAN BERGERON MD Jan 06, 2025 16:33
--- NOTE | 2025-01-06 17:13 | MEDREC ---
[facility] Intervention Section I [facility] Intervention: Review courses of therapy (PLEASE CONSIDER D/C ANTIBIOTIC(S) IN ABSENCE OF BACTERIAL INFECTION) JULIAN LOPEZ PHARMACIST Jan 06, 2025 17:13
[2025-01-06 20:06] LABS: Vitamin D 25-Hydroxy 28 ng/mL (.); Vitamin D-2 25-Hydroxy 19 ng/mL (.); Vitamin D-3 25-Hydroxy 9.1 ng/mL (.)
[2025-01-07 05:00] VITALS: BP 123/66; PULSE 81; RESP 19; TEMP 97.8; O2SAT 95
[2025-01-07 07:36] LABS: Chloride 107 mmol/L (98-107); Potassium 4.7 mmol/L (3.5-5.1); Sodium 137 mmol/L (136-145)
[2025-01-07 07:37] LABS: Anion Gap 9 (5-15); Calcium 9.3 mg/dL (8.7-10.4); Carbon Dioxide 21 mmol/L (20-31)
[2025-01-07 07:42] LABS: BUN/Creatinine Ratio 27.3 (10.0-20.0)
[2025-01-07 07:51] LABS: Blood Urea Nitrogen 38 mg/dL (9-23); Glucose 159 mg/dL (74-106)
[2025-01-07 08:00] VITALS: PULSE 89; RESP 17; O2SAT 99
[2025-01-07 09:00] VITALS: BP 160/81; PULSE 89; RESP 17; TEMP 98.1; O2SAT 99
[2025-01-07 13:00] VITALS: BP 162/90; PULSE 91; RESP 20; TEMP 97.9; O2SAT 97
--- NOTE | 2025-01-07 13:15 | DVHPNRES ---
Progress Note Date Seen: Jan 07, 2025 Resident Creating Document: ZACHARY HERNANDEZ RESIDENT Has the PT tested + for MRSA If YES, has PT been informed?: No Medical Necessity Reason Pt with a Central, PICC or Fol: Yes The following are medically ne: Caal Catheter Subjective Patient reports: No new complaints Other Systems: Patient seen and examined by myself today on rounds with the medicine resident, I agree with his assessment Objective vital signs Vital Sign Date Time Temp Pulse Resp B/P (MAP) Pulse Ox O2 Delivery O2 Flow Rate FiO2 01/07/25 09:00 98.1 89 17 160/81 (107) 99 98.1 01/07/25 08:00 Room Air* 0 21 Total Intake and Output 01/06/25 01/06/25 01/07/25 15:00 23:00 07:00 Intake Total 1350 ml 150 ml Output Total 600 ml 600 ml Balance 750 ml -450 ml medications Current Medications Medications Dose Ordered Sig/Ash Route Start Time Stop Time Status Last Admin Dose Admin Acetaminophen/ Hydrocodone Bitart 1 tab Q4HP PRN PO 01/03/25 08:00 01/07/25 09:20 1 TAB Ondansetron HCl 4 mg Q4HP PRN IV 01/03/25 08:00 01/03/25 19:39 4 MG Enoxaparin Sodium 30 mg DAILY SC 01/03/25 10:00 01/07/25 09:22 30 MG Acetaminophen 650 mg Q6HP PRN PO 01/03/25 08:00 01/03/25 20:18 650 MG Ferrous Sulfate 325 mg BIDWM PO 01/03/25 08:00 01/07/25 08:30 325 MG Diagnostic Test (Pha) 1 strip ACHS 01/03/25 11:30 01/07/25 12:23 1 STRIP Insulin Human Regular ACHS SC 01/03/25 11:30 01/07/25 12:23 3 UNITS Dextrose 50 ml UD PRN IV 01/03/25 08:00 Hydralazine HCl 10 mg Q6HP PRN IV 01/03/25 10:00 01/04/25 21:22 10 MG Atorvastatin Calcium 20 mg HS PO 01/03/25 22:00 01/06/25 21:18 20 MG Clonidine HCl 0.1 mg TID PO 01/03/25 14:00 01/07/25 05:50 0.1 MG Levothyroxine Sodium 88 mcg DAILY@0600 PO 01/04/25 06:00 01/07/25 05:50 88 MCG Ceftriaxone Sodium 50 ml @ 100 mls/hr DAILY@09 IV 01/04/25 09:00 01/07/25 09:21 100 MLS/HR Examination Examination: GENERAL:Normal, HEENT:Normal, NECK:Normal, LUNGS:Normal, CVS:Normal, ABDOMEN:Normal, MSK:Normal, SKIN:Normal, NEURO:Normal laboratory and microbiology Laboratory Tests 01/07/25 05:22 01/04/25 04:55 Test 01/07/25 05:22 Range/Units Serum Glucose 159 H 74-106 mg/dL Microbiology Date/Time Source Procedure Growth Status 01/03/25 12:45 Nose MRSA Screen - Final Complete Labs and/or images reviewed: Labs reviewed by me, Image(s) reviewed by me Problem List/Assessment/Plan Problem List/Assessment/Plan Lexi Paul, a 74-year-old female with a history of hypertension, dyslipidemia, type 2 diabetes, morbid obesity, heart failure, and chronic kidney disease, presented to the emergency department with acute kidney injury (KASHIF) and an inability to walk. Her [id number] reported that her legs gave out. She also complained of bilateral lower extremity pain, rated 8/10, pressure- like, and chronic for the past 1-2 years. She was directly admitted from [facility]. An MRI of the lumbar spine suggested a hematologic disorder, and she was advised to follow up with Dr. Hoa Hernandez for further evaluation. Nephrology Consult/ Progress Note: Assessment: #Acute kidney injury due to VMN, hemodynamic mediated etiology #Likely Chronic kidney disease IIIb # Diabetes type II #Obesity grade III #Mild proteinuria Findings: #GFR: 32>40 #Creatinine: 1.57>2.46>2.07>1.66>1.39 #I&O: 0834-1504=300 #Mg>1.5 #Urinalysis unremarkable #US renal: No hydronephrosis. Caal catheter in the urinary bladder. Plan: #Otherwise ok to discharge from nephrology perspective. #continue to hold colchicine and lasix, good urine output. #Strict I&O and check Daily weight.Avoid Nephrotoxics ,Avoid hyper/hypo tension ,Fluid Restriction. #Daily BMP, and close follow up. #Blood pressure control target BP 130/80 or below in adult diabetic as per AHA/ACC guidelines. #2 weeks follow up with Dr. Ramírez with follow up labs. #Rest of the management as per primary team. Thank you for the opportunity to follow up on your patient. In case of any question feel free to reach out to the Nephrology team. Discussed with Nephrology attending Dr. Ramírez. Plan discussed with: Patient, Other Dietary Evaluation Review Recommendations by RD: Protein Supplementation Comments: 1) Initiate Glucerna 1.2 @ 8 fl oz bid d/t decreased PO intake 2) Encourage PO intake - consider staff to assist d/t weakness 3) Follow up with nephrology and neurology 4) Refer to outpatient RD/CDCES for weight management Expected Outcomes/Goals: 1) Appetite and labs to improve 2) f/u in 5 days Labs/Diagnostic Data Laboratory Tests Test 01/07/25 05:43 01/07/25 05:22 01/06/25 21:35 Range/Units POC Glucose 151 H 194 H 70-106 mg/dl Sodium Level 137 136-145 mmol/L Potassium Level 4.7 3.5-5.1 mmol/L Chloride Level 107 98-107 mmol/L Carbon Dioxide Level 21 20-31 mmol/L Anion Gap 9 5-15 Blood Urea Nitrogen 38 H 9-23 mg/dL Creatinine 1.39 H 0.550-1.02 mg/dL Glomerular Filtration Rate Calc 40 >90 mL/min BUN/Creatinine Ratio 27.3 H 10.0-20.0 Serum Glucose 159 H 74-106 mg/dL Calcium Level 9.3 8.7-10.4 mg/dL Microbiology Date/Time Source Procedure Growth Status 01/03/25 12:45 Nose MRSA Screen - Final Complete vital signs Vital Sign Date Time Temp Pulse Resp B/P (MAP) Pulse Ox O2 Delivery O2 Flow Rate FiO2 01/07/25 09:00 98.1 89 17 160/81 (107) 99 98.1 01/07/25 08:00 Room Air* 0 21 Total Intake and Output 01/06/25 01/06/25 01/07/25 15:00 23:00 07:00 Intake Total 1350 ml 150 ml Output Total 600 ml 600 ml Balance 750 ml -450 ml medications Current Medications Medications Dose Ordered Sig/Ash Route Start Time Stop Time Status Last Admin Dose Admin Acetaminophen/ Hydrocodone Bitart 1 tab Q4HP PRN PO 01/03/25 08:00 01/07/25 09:20 1 TAB Ondansetron HCl 4 mg Q4HP PRN IV 01/03/25 08:00 01/03/25 19:39 4 MG Enoxaparin Sodium 30 mg DAILY SC 01/03/25 10:00 01/07/25 09:22 30 MG Acetaminophen 650 mg Q6HP PRN PO 01/03/25 08:00 01/03/25 20:18 650 MG Ferrous Sulfate 325 mg BIDWM PO 01/03/25 08:00 01/07/25 08:30 325 MG Diagnostic Test (Pha) 1 strip ACHS 01/03/25 11:30 01/07/25 12:23 1 STRIP Insulin Human Regular ACHS SC 01/03/25 11:30 01/07/25 12:23 3 UNITS Dextrose 50 ml UD PRN IV 01/03/25 08:00 Hydralazine HCl 10 mg Q6HP PRN IV 01/03/25 10:00 01/04/25 21:22 10 MG Atorvastatin Calcium 20 mg HS PO 01/03/25 22:00 01/06/25 21:18 20 MG Clonidine HCl 0.1 mg TID PO 01/03/25 14:00 01/07/25 05:50 0.1 MG Levothyroxine Sodium 88 mcg DAILY@0600 PO 01/04/25 06:00 01/07/25 05:50 88 MCG Ceftriaxone Sodium 50 ml @ 100 mls/hr DAILY@09 IV 01/04/25 09:00 01/07/25 09:21 100 MLS/HR laboratory and microbiology Laboratory Tests 01/07/25 05:22 01/04/25 04:55 Test 01/07/25 05:22 Range/Units Serum Glucose 159 H 74-106 mg/dL ZACHARY HERNANDEZ Jan 07, 2025 13:15 LILIAN RAMÍREZ MD Jan 07, 2025 16:31
--- NOTE | 2025-01-07 13:46 | DVHDS2 ---
Discharge Summary Date of Admission Jan 03, 2025 at 07:53 Date of Discharge: Jan 07, 2025 Admitting Diagnosis Mild central canal stenosis L4-5. Labs/Diagnostic Data: Laboratory Results Test 01/07/25 05:43 01/07/25 05:22 01/06/25 05:35 01/04/25 04:55 POC Glucose 151 mg/dl (70-106) Sodium Level 137 mmol/L (136-145) Potassium Level 4.7 mmol/L (3.5-5.1) Chloride Level 107 mmol/L (98-107) Carbon Dioxide Level 21 mmol/L (20-31) Anion Gap 9 (5-15) Blood Urea Nitrogen 38 mg/dL (9-23) Creatinine 1.39 mg/dL (0.550-1.02) Glomerular Filtration Rate Calc 40 mL/min (>90) BUN/Creatinine Ratio 27.3 (10.0-20.0) Serum Glucose 159 mg/dL (74-106) Calcium Level 9.3 mg/dL (8.7-10.4) Phosphorus Level 3.2 mg/dL (2.4-5.1) Magnesium Level 1.4 mg/dL (1.6-2.6) White Blood Count 9.9 10^3/uL (4.4-10.8) Red Blood Count 3.63 10^6/uL (4.0-5.20) Hemoglobin 10.9 g/dL (12.2-16.2) Hematocrit 32.9 % (36.0-46.0) Mean Corpuscular Volume 90.8 fL (80.0-100.0) Mean Corpuscular Hemoglobin 30.1 pg (28.0-32.0) Mean Corpuscular Hemoglobin Concent 33.2 g/dL (32.0-36.0) Red Cell Distribution Width 16.8 % (11.8-14.3) Platelet Count 232 10^3/uL (140-450) Mean Platelet Volume 9.4 fL (6.9-10.8) Neutrophils (%) (Auto) 55.3 % (37.0-80.0) Lymphocytes (%) (Auto) 28.2 % (10.0-50.0) Monocytes (%) (Auto) 14.3 % (0.0-12.0) Eosinophils (%) (Auto) 1.8 % (0.0-7.0) Basophils (%) (Auto) 0.4 % (0.0-2.0) Neutrophils # (Auto) 5.5 10 ^3/uL (1.6-8.6) Lymphocytes # (Auto) 2.8 10 ^3/uL (0.4-5.4) Monocytes # (Auto) 1.4 10 ^3/uL (0-1.3) Eosinophils # (Auto) 0.2 10 ^3/uL (0-0.8) Basophils # (Auto) 0 10 ^3/uL (0-0.2) Nucleated Red Blood Cells 0.1 % Total Bilirubin 0.3 mg/dL (0.2-1.0) Aspartate Amino Transferase (AST) 16 U/L (13-40) Alanine Aminotransferase (ALT) 18 U/L (7-40) Alkaline Phosphatase 158 U/L (46-116) Total Protein 7.8 g/dL (5.7-8.2) Albumin 4.0 g/dL (3.2-4.8) Test 01/03/25 16:01 01/03/25 13:45 01/03/25 10:23 Vitamin D 25-Hydroxy 28 ng/mL (.) 25-Hydroxy Vitamin D2 19 ng/mL (.) 25-Hydroxy Vitamin D3 9.1 ng/mL (.) Urine Color Light-yellow (Yellow) Urine Clarity Clear (Clear) Urine pH 5.5 (5.0-9.0) Urine Specific Mcclellan 1.009 (1.001-1.035) Urine Protein 1+ (Negative) Urine Ketones Negative (Negative) Urine Blood Negative /uL (Negative) Urine Nitrite Negative (Negative) Urine Bilirubin Negative (Negative) Urine Urobilinogen Normal mg/dL (Negative) Urine Leukocyte Esterase Negative /uL (Negative) Urine RBC <1 /hpf (0 - 4) Urine Microscopic WBC < 1 /HPF (0-5) Urine Squamous Epithelial Cells Few /hpf (<5) Urine Bacteria Few /hpf (None Seen) Urine Glucose Normal mg/dL (Normal) Hemoglobin A1c 6.8 % A1C (<5.7) B-Type Natriuretic Peptide 82.47 pg/mL (0-100) Vitamin B12 Level 339 pg/mL (211-911) Thyroid Stimulating Hormone (TSH) 2.14 uIU/mL (0.55-4.78) Other Laboratory Tests 01/07/25 05:22 01/04/25 04:55 Brief Hx & Hospital Course: Lexi Harris is a 74-year-old female with past medical history of hypertension, hyperlipidemia, diabetes type 2, asthma, and heart failure who presents to the ED with failure to thrive. Patient was a direct admit from [facility]. Patient is currently complaining of bilateral lower extremity pain states that it is 8/10 pressure-like and constant and chronic for the past 1-2 years. Patient had a L spine MRI, needs an outpatient whole body scan. I explained to the patient she will need to see Dr. Hoa Lester as MRI is suggestive of Hematologic disorder. Patient understands and will followup with Dr. Hoa Lester. Operations or Procedures PROCEDURE: MRI LUMBAR SPINE WO CONTRAST INDICATION: Lumbar stenosis Exam Date: 01/03/2025 04:14 PM COMPARISON: None TECHNIQUE: MRI lumbar spine without intravenous contrast. FINDINGS: Grade 1 anterolisthesis of L4 on L5. There are degenerative endplate changes including modic endplate changes with anterior and lateral osteophytes throughout the lumbar spine. Marrow signal is diffusely low. Focal high signal in the right iliac crest. The visualized distal spinal cord and conus medullaris are within normal limits. The conus medullaris appears to terminate within normal limits. The visualized retroperitoneal and paraspinal soft tissues are unremarkable. The following axial levels are detailed below: T12-L1: There is a mild circumferential disc bulge. No significant central canal or neuroforaminal stenosis. L1-L2: There is a mild circumferential disc bulge. No significant central canal or neuroforaminal stenosis. L2-L3: There is a severe circumferential disc bulge complicated by facet arthropathy associated with mild to moderate right and moderate to severe left neuroforaminal stenosis. No significant central canal stenosis. L3-L4: There is a moderate circumferential disc bulge complicated by facet arthropathy associated with mild to moderate bilateral neuroforaminal stenosis. No significant central canal stenosis. L4-L5: There is a moderate circumferential disc bulge complicated by facet arthropathy associated with moderate bilateral neuroforaminal stenosis. Central canal measures 9 mm. L5-S1: There is a moderate circumferential disc bulge complicated by facet arthropathy associated with mild to moderate bilateral neuroforaminal stenosis. No significant central canal stenosis. IMPRESSION: 1. Multilevel degenerative disease. Grade 1 anterolisthesis of L4 on L5. Mild central canal stenosis L4-5. Neural foraminal stenosis worst at L2-3 as above. Marrow signal is diffusely low. Correlate for hematologic disorder. Focal high signal in the right iliac crest. A lesion is not excluded. This could be further evaluated with whole-body bone scan. Condition at Discharge: Poor Final Diagnosis/Problems List Mild central canal stenosis L4-5. Neural foraminal stenosis worst at L2-3 as above. Marrow signal is diffusely low. Correlate for hematologic disorder. Focal high signal in the right iliac crest. A lesion is not excluded. This could be further evaluated with whole-body bone scan. Morbidly Obese Discharge Disposition: Home Discharge Instruct/Medications Diet: Regular Activity: Light activity Follow Up/Referral: Dr. Hoa Lester in 1 week Medications: Tylenol PRN Discharge Statement: "Patient was advised to return to the ER or call 911 if any headaches, dizziness, shortness of breath, chest pain, abdominal pain, bleeding, fevers, or worsening of medical condition. Patient was counseled about treatment plan, medications, possible side effects, patientverbalized understanding. All questions were answered to the best of my ability. This discharge took greater then 30 minutes in planning, reviewing documentation, counseling the patient, and discussing with other team members." ASSESSMENT ASSESSMENT Assessment Date of Service: Jan 07, 2025 Billing Provider: CARMENZA SORENSEN MD Common Visit Codes: [id number] DISCH DAY >30min CARMENZA SORENSEN MD Jan 07, 2025 13:46
[2025-01-07] MEDS: MAGNESIUM OXIDE 400 MG TAB PO ONE (13:52)
[2025-01-07 14:29] VITALS: BP 139/67; PULSE 71; PULSE 93; RESP 20; TEMP 97.9; O2SAT 97
== END 2025-01-07 16:00 | disposition home or self-care (01) | DRG 551 ==
LOC: ER 07:48 → EDBD 07:48 → OVERFLOW 07:53 → WEST WING 10:44
PROVIDERS: ADMIT Internal Medicine; ATTEND Internal Medicine
DX: M48.061 Spinal stenosis, lumbar region without neurogenic claudication (principal); N17.0 Acute kidney failure with tubular necrosis; I13.0 Hypertensive heart and chronic kidney disease with heart failure and stage 1 through stage 4 chronic kidney disease, or unspecified chronic kidney disease; Z68.41 Body mass index [BMI] 40.0-44.9, adult; E66.01 Morbid (severe) obesity due to excess calories; E11.22 Type 2 diabetes mellitus with diabetic chronic kidney disease; J45.909 Unspecified asthma, uncomplicated; N18.9 Chronic kidney disease, unspecified; R62.7 Adult failure to thrive; D72.829 Elevated white blood cell count, unspecified; E78.5 Hyperlipidemia, unspecified; R80.9 Proteinuria, unspecified; I50.9 Heart failure, unspecified; Z79.1 Long term (current) use of non-steroidal anti-inflammatories (NSAID); Z79.891 Long term (current) use of opiate analgesic; Z79.899 Other long term (current) drug therapy; Z79.82 Long term (current) use of aspirin
CPT/HCPCS: 36415; 70450; 71045; 72148; 74176; 76775; 80048; 80053; 81001; 82306; 82607; 82962; 83036; 83735; 83880; 84100; 84425; 84443; 85025; 87081; 93970; 96361; 96365; 96375; 97116; 97163; 97530; G0378; J1815; J2405

== ENCOUNTER → 2025-02-21 | Outpatient (CLI) | payer OTHER, MEDICAID ==
[~2025-02-21] MED LIST changes: +ALBU2TAB11 PO; +ALLO300T2 PO; +ASPI-543 PO; +ATOR20TA50 PO; +CHOL500033 PO; +CLON0.1T PO; +DIPH50CA31 PO; +GABA-1250 PO; +GLIM4TAB42 PO; +INSU100I4 SC; +LEVO-177 PO; +LORA-622 PO; +METO-289 PO; +POTA-36 PO
[2025-02-21 10:21] LABS: Protein, Urine 105.8 mg/dL (1-14)
[2025-02-21 10:22] LABS: Creatinine, Urine 54.72 mg/dL (30.0-125.0); Urine Protein/Creatinine Ratio 1.93
[2025-02-21 10:27] LABS: Alanine Aminotransferase 13 U/L (7-40); Albumin 4.4 g/dL (3.2-4.8); Anion Gap 9 (5-15); Aspartate Aminotransferase 14 U/L (13-40); Carbon Dioxide 22 mmol/L (20-31); LDL Cholesterol 64 mg/dL (< 100); Potassium 5.1 mmol/L (3.5-5.1); Sodium 139 mmol/L (136-145); Triglycerides 118 mg/dL (< 150)
[2025-02-21 10:28] LABS: Cholesterol 125 mg/dL (< 200)
[2025-02-21 10:29] LABS: Alkaline Phosphatase 180 U/L (46-116); Bilirubin, Total 0.2 mg/dL (0.2-1.0); Blood Urea Nitrogen 28 mg/dL (9-23); Chloride 108 mmol/L (98-107); Free T3 2.65 pg/mL (2.3-4.2); Glucose 162 mg/dL (74-106); HDL Cholesterol 35 mg/dL (40-59); Total Protein 8.7 g/dL (5.7-8.2)
[2025-02-21 10:31] LABS: Free T4 (Free Thyroxine) 0.94 ng/dL (0.89-1.76)
== END | disposition home or self-care (01) ==
LOC: LAB 09:19
PROVIDERS: ATTEND Internal Medicine
DX: E11.65 Type 2 diabetes mellitus with hyperglycemia (principal); E11.69 Type 2 diabetes mellitus with other specified complication; E03.9 Hypothyroidism, unspecified
CPT/HCPCS: 36415; 80053; 80061; 82043; 82570; 83036; 84156; 84439; 84443; 84481

== ENCOUNTER 2025-06-06 10:00 | Outpatient (CLI) | payer OTHER, MEDICAID ==
[2025-06-06 10:54] LABS: Hematocrit 38.4 % (36.0-46.0); Hemoglobin 12.5 g/dL (12.2-16.2); Mean Corpuscular Hemoglobin 29.8 pg (28.0-32.0); Mean Corpuscular Volume 91.7 fL (80.0-100.0); Nucleated Red Blood Cells % 0.0 %
[2025-06-06 11:16] LABS: Alanine Aminotransferase 17 U/L (7-40); Albumin 4.4 g/dL (3.2-4.8); Anion Gap 9 (5-15); BUN/Creatinine Ratio 18.2 (10.0-20.0); Calcium 9.8 mg/dL (8.7-10.4); Carbon Dioxide 22 mmol/L (20-31); Potassium 4.5 mmol/L (3.5-5.1); Sodium 141 mmol/L (136-145); Triglycerides 70 mg/dL (< 150)
[2025-06-06 11:17] LABS: Bilirubin, Direct 0.2 mg/dL (<0.3); Bilirubin, Total 0.4 mg/dL (0.2-1.0); Cholesterol 83 mg/dL (< 200)
[2025-06-06 11:33] LABS: Alkaline Phosphatase 160 U/L (46-116); Blood Urea Nitrogen 29 mg/dL (9-23); Chloride 110 mmol/L (98-107); HDL Cholesterol 32 mg/dL (40-59); Total Protein 8.3 g/dL (5.7-8.2)
[2025-06-06 11:39] LABS: Glucose 23 mg/dL (74-106)
== END 2025-06-06 17:00 | disposition home or self-care (01) ==
LOC: LAB 10:00
PROVIDERS: ATTEND Internal Medicine Hematology & Oncology
DX: E11.65 Type 2 diabetes mellitus with hyperglycemia (principal)
CPT/HCPCS: 36415; 80053; 80061; 80076; 83036; 84443; 85025

== ENCOUNTER 2025-07-10 14:11 | Inpatient (IN) | payer OTHER, MEDICAID ==
[~2025-07-10] VITALS: Ht 154.9 cm; Wt 127.0 kg
[2025-07-10 14:40] VITALS: PULSE 71; RESP 22; O2SAT 97
--- NOTE | 2025-07-10 15:44 | ED.PDOC ---
History of present illness HPI Comments 75 y/o F, BIBA, with PMhx of HTN, depression, and thyroid disease, presents to the ED for CC of hypoglycemia. EMS reports, patient is coming from home where she c/o fatigue, weakness, and changes in speech x1day. Per EMS, upon arrival to scene patient's blood sugar read at 78 on glucometer. Patient denies blurred vision, headache, nausea, vomiting, or urinary symptoms. No other symptoms or modifying factors are present at this time. Chief Complaint: Hypoglycemia Time Seen by MD: 15:00 History of present illness: Nurses Notes, Medications, Allergies Allergies: Coded Allergies: NO KNOWN ALLERGIES (Unverified , 01/03/25) Home Meds Reported Medications Amlodipine Besylate (Amlodipine Besylate) 5 Mg Tab, 1 TAB PO DAILY for 90 Days, #90 01/06/25 Insulin Lispro (Humalog Kwikpen) 100 Unit/Ml Inj, 21 UNIT SC TIDAC for 86 Days, #48 01/06/25 Hydrocodone-Acetaminophen (Hydrocodone Bitartrate/AC 10-325 mg) 1 Tab Tab, 1 TAB PO Q8HR for 30 Days, #90 01/06/25 Albuterol Sulfate (Albuterol Sulfate) 2 Mg Tab, 90 MCG PO Q6HR, MG 01/03/25 Diphenhydramine Hcl (BANOPHEN) 50 Mg Cap, 25 MG PO Q6HR, CAP 01/03/25 Cholecalciferol (Vitamin D-3) 5,000 Unit Cap, 1000 UNIT PO DAILY, CAP 01/03/25 Aspirin (Aspir-Low) 81 Mg Tab, 81 MG PO DAILY for 30 Days, MG 01/03/25 Glimepiride (Glimepiride) 4 Mg Tab, 4 MG PO DAILY for 30 Days, MG 01/03/25 Potassium Chloride (POTASSIUM CHLORIDE CR) 10 Meq Tb, 8 MEQ PO DAILY, TAB 01/03/25 Loratadine (Claritin) 10 Mg Tab, 1 TAB PO DAILY, #30 TAB 5 Refills 01/03/25 Gabapentin (Gabapentin) 300 Mg Cap, 1 CAP PO TID 01/03/25 Allopurinol (Allopurinol) 300 Mg Tab, 1 TAB PO DAILY 01/03/25 Metoprolol Succinate (Metoprolol Succinate Er) 50 Mg Tab, 1 TAB PO DAILY 01/03/25 Atorvastatin Calcium (ATORVASTATIN CALCIUM) 20 Mg Tab, 20 MG PO DAILY 01/03/25 Clonidine Hydrochloride (Clonidine Hcl) 0.1 Mg Tab, 0.2 MG PO TID 01/03/25 Levothyroxine Sodium (Levothyroxine Sodium) 88 Mcg Tab, 1 TAB PO DAILY 01/03/25 Information Source: Patient Mode of Arrival: EMS Timing: Hours Duration: Since onset [place]: Slurred speech Modifying factors: Nothing Associated signs and symptoms: None Past Medical History PAST MEDICAL HISTORY: Depression, HTN, Thyroid Surgical History: Denies all surgeries S[employer] History: Denies all SIL[employer] Hx Family History Family History: Unknown Social History Smoker: Non-Smoker Alcohol: Denies ETOH Use Drugs: Denies Drug Use Lives In: Home Constitutional: reports: fatigue, weakness; denies: chills, diaphoresis, fever, malaise, sweats, others EENTM: denies: blurred vision, double vision, ear bleeding, ear discharge, ear drainage, ear pain, ear ringing, eye pain, eye redness, hearing loss, mouth pain, mouth swelling, nasal discharge, nose bleeding, nose congestion, nose pain, photophobia, tearing, throat pain, throat swelling, voice changes, others Respiratory: denies: cough, hemoptysis, orthopnea, SOB at rest, shortness of breath, SOB with excertion, stridor, wheezing, others Cardiovascular: denies: chest pain, dizzy spells, diaphoresis, Dyspnea on exertion, edema, irregular heart beat, left arm pain, lightheadedness, palpitations, PND, syncope, others Gastrointestinal: denies: abdomen distended, abdominal pain, blood streaked bowels, constipated, diarrhea, dysphagia, difficulty swallowing, hematemesis, melena, nausea, poor appetite, poor fluid intake, rectal bleeding, rectal pain, vomiting, others Genitourinary: denies: abnormal vagina bleeding, burning, dyspareunia, dysuria, flank pain, frequency, hematuria, incontinence, pain, , vagina discharge, urgency, others Neurological: denies: dizziness, fainting, headache, left sided numbness, left sided weakness, numbness, paresthesia, pre-existing deficit, right sided numbnes s, right sided weakness, seizure, speech problems, tingling, tremors, weakness, others Musculoskeletal: denies: back pain, gout, joint pain, joint swelling, muscle pain, muscle stiffness, neck pain, others Integumetry: denies: bruises, change in color, change in hair/nails, dryness, laceration, lesions, lumps, rash, wounds, others Allergic/Immunocompromised: denies: Difficulty Healing, Frequent Infections, Hives, Itching, others Hematologic/Lymphatic: denies: anemia, blood clots, easy bleeding, easy bruising, swollen glands, others Endocrine: denies: excessive hunger, excessive sweating, excessive thirst, excessive urination, flushing, intolerance to cold, intolerance to heat, unexplained weight gain, unexplained weight loss, others Psychiatric: denies: anxiety, bipolar disorder, depression, hopeless, panic disorder, schizophrenia, sleepless, suicidal, others All Other Systems: Reviewed and Negative Physical Exam General Appearance: No Apparent Distress, Obese HEENT: Normal ENT Inspection, Pharynx Normal Neck: Full Range of Motion, Non-Tender, Normal, Normal Inspection Respiratory: Chest Non-Tender, Lungs Clear, No Accessory Muscle Use, No Respiratory Distress, Normal Breath Sounds Cardiovascular: No Edema, No Murmur, No Gallop, Normal Peripheral Pulses, Regular Rate/Rhythm Breast Exam: Deferred Gastrointestinal: No Organomegaly, Non Tender, No Pulsatile Mass, Normal Bowel Sounds, Soft Genitalia: Deferred Pelvic: Deferred Rectal: Deferred Extremities: No calf tenderness, Normal capillary refill, Normal inspection, Normal range of motion, Non-tender, No pedal edema Musculoskeletal : Apperance: Normal Neurologic: Alert, customer service leader II-XII nml as Tested, No Motor Deficits, Normal Affect, Normal Mood, No Sensory Deficits Cerebellar Function: Normal Reflexes: Normal Skin: Dry, Normal Color, Warm Lymphatic: No Adenopathy Was a procedure done? Was a procedure done?: No Differential Diagnosis (DM) Differential Diagnosis: Hypoglycemia X-Ray, Labs, Meds, VS Vital Signs Date Time Temp Pulse Resp B/P (MAP) Pulse Ox O2 Delivery O2 Flow Rate FiO2 07/10/25 16:31 60 15 180/75 (110) 98 07/10/25 14:40 97.9 71 22 166/78 (107) 97 97.9 07/10/25 14:40 71 22 97 Room Air* 0 21 07/10/25 14:32 97.5 75 18 172/92 98 97.5 Lab Test 07/10/25 15:45 07/10/25 15:34 Range/Units White Blood Count 10.2 4.4-10.8 10^3/uL Red Blood Count 4.25 4.0-5.20 10^6/uL Hemoglobin 13.0 12.2-16.2 g/dL Hematocrit 38.8 36.0-46.0 % Mean Corpuscular Volume 91.3 80.0-100.0 fL Mean Corpuscular Hemoglobin 30.6 28.0-32.0 pg Mean Corpuscular Hemoglobin Concent 33.5 32.0-36.0 g/dL Red Cell Distribution Width 15.0 H 11.8-14.3 % Platelet Count 323 140-450 10^3/uL Mean Platelet Volume 8.5 6.9-10.8 fL Neutrophils (%) (Auto) 64.9 37.0-80.0 % Lymphocytes (%) (Auto) 25.4 10.0-50.0 % Monocytes (%) (Auto) 6.3 0.0-12.0 % Eosinophils (%) (Auto) 3.0 0.0-7.0 % Basophils (%) (Auto) 0.4 0.0-2.0 % Neutrophils # (Auto) 6.6 1.6-8.6 10 ^3/uL Lymphocytes # (Auto) 2.6 0.4-5.4 10 ^3/uL Monocytes # (Auto) 0.6 0-1.3 10 ^3/uL Eosinophils # (Auto) 0.3 0-0.8 10 ^3/uL Basophils # (Auto) 0 0-0.2 10 ^3/uL Nucleated Red Blood Cells 0.0 % Sodium Level 141 136-145 mmol/L Potassium Level 5.0 3.5-5.1 mmol/L Chloride Level 106 98-107 mmol/L Carbon Dioxide Level 25 20-31 mmol/L Anion Gap 10 5-15 Blood Urea Nitrogen 41 H 9-23 mg/dL Creatinine 1.39 H 0.550-1.02 mg/dL Glomerular Filtration Rate Calc 40 >90 mL/min BUN/Creatinine Ratio 29.5 H 10.0-20.0 Serum Glucose 110 H 74-106 mg/dL Calcium Level 9.6 8.7-10.4 mg/dL Troponin I High Sensitivity 13 </=34 ng/L Urine Color Colorless Yellow Urine Clarity Turbid H Clear Urine pH 6.0 5.0-9.0 Urine Specific [place] 1.009 1.001-1.035 Urine Protein Trace H Negative Urine Ketones Negative Negative Urine Blood Negative Negative /uL Urine Nitrite Negative Negative Urine Bilirubin Negative Negative Urine Urobilinogen Normal Negative mg/dL Urine Leukocyte Esterase Negative Negative /uL Urine RBC 3 0 - 4 /hpf Urine Microscopic WBC 2 0-5 /HPF Urine Squamous Epithelial Cells Few <5 /hpf Urine Bacteria Few H None Seen /hpf Urine Glucose Normal Normal mg/dL [facility] [id number] [place] [id number] Ph: [phone] DIAGNOSTIC IMAGING Diagnostic Imaging Report : [id number] Signed PATIENT: TIN MCKEONACCT: [id number] UNIT: [id number] : 1950 LOC: ER ROOM / BED: / AGE / SEX: 75 / F ADM STATUS: REG ER SERVICE 1534 ORDERING PHYSICIAN: DOUG SHAHID MD PROCEDURE(s): CXRP - CHEST PORTABLE REASON: weakness ORDER NUMBER(s): [id number], ACCESSION NUMBER(s): [id number] CHEST RADIOGRAPH Indication: weakness Technique: XY CHEST PORTABLE COMPARISON: None FINDINGS: The cardiac silhouette is enlarged. The lungs demonstrate bilateral patchy airspace opacities, [id number]. The pulmonary vasculature is prominent. There are small bilateral pleural effusions. There is no pneumothorax. IMPRESSION: Cardiomegaly with pulmonary vascular congestion and bilateral patchy airspace opacities. Small bilateral pleural effusions. ATED BY: MARILU DALTON MD DICTATED DATE/TIME: 07/10/251621 SIGNED BY: MARILU DALTON MD SIGNED DATE/TIME: 07/10/251621 CC: Time of 1ST Reevaluation: 15:30 Reevaluation 1ST: Unchanged Patient Education/Counseling: Diagnosis, Treatment Family Education/Counseling: No Family Present SEPSIS Sepsis Screen Date sepsis recognized/suspect: Jul 10, 2025 Time Sepsis recognized/suspect: 1526 Recent Procedure: No On Antibiotic Therapy: No Respiratory Rate >20: Yes Heart Rate >90: No Temp<36 C (96.8 F) or >38.3 C: No SBP <90 or MAP <65 mmHG: No New Acute Mental Status Change: No Is the patient on CPAP, BIPAP,: No Physician Orders Chest Portable (07/10/25 15:34) Troponin-I Hs (07/10/25 16:34) Troponin-I Hs (07/10/25 18:34) Vital Signs Date Time Temp Pulse Resp B/P (MAP) Pulse Ox O2 Delivery O2 Flow Rate FiO2 07/10/25 16:31 60 15 180/75 (110) 98 07/10/25 14:40 97.9 71 22 166/78 (107) 97 97.9 07/10/25 14:40 71 22 97 Room Air* 0 21 07/10/25 14:32 97.5 75 18 172/92 98 97.5 Laboratory Tests Test 07/10/25 15:45 White Blood Count 10.2 10^3/uL (4.4-10.8) Departure 1 Departure Time of Disposition: 17:58 (Patient presenting with the acute altered mental status. Found to have recurrent hypoglycemia despite food and sugar. Patient is too weak and he had medically complicated discharged home. We will admit patient for further workup) Impression: Primary Impression: Acute metabolic encephalopathy Additional Impression: Hypoglycemia Disposition: ADMITTED INPATIENT Admit to: Med Surg Condition: Serious Critical Care Note Critical Care Time?: Yes Critical care comment: Altered mental status Authorized and Performed by: Doug Shahid MD Total critical care time: Approximately 38 minutes Due to a high probability of clinically significant, life threatening deterioration, the patient required my highest level of preparedness to intervene emergently and I personally spent this critical care time directly and personally managing the patient. This critical care time included obtaining a history; examining the patient; pulse oximetry; ordering and review of studies; arranging urgent treatment with development of a management plan; evaluation of patient's response to treatment; frequent reassessment; and, discussions with other providers. This critical care time was performed to assess and manage the high probability of imminent, life-threatening deterioration that could result in multi-organ failure. It was exclusive of separately billable procedures and treating other patients and teaching time. Please see my other sections and the rest of the note for further information on patient assessment and treatment. Stability Stability form required: No Heart Score Heart Score: Heart Score Response (Comments) Value History N/A 0 EKG N/A 0 Age N/A 0 Risk Factors N/A 0 Troponin N/A 0 Total 0 I personally scribed for DOUG SHAHID MD ([email or web address]) on 07/10/25 at 15:44. Electronically submitted by Elsie Go ([email or web address]). I personally scribed for DOUG SHAHID MD ([email or web address]) on 07/10/25 at 16:02. Electronically submitted by Elsie Go ([email or web address]). I personally scribed for DOUG SHAHID MD ([email or web address]) on 07/10/25 at 16:29. Electronically submitted by Elsie Go ([email or web address]). DOUG SHAHID MD Jul 10, 2025 15:44
[2025-07-10 16:01] LABS: Hematocrit 38.8 % (36.0-46.0); Hemoglobin 13.0 g/dL (12.2-16.2); Mean Corpuscular Hemoglobin 30.6 pg (28.0-32.0); Mean Corpuscular Volume 91.3 fL (80.0-100.0); Nucleated Red Blood Cells % 0.0 %
[2025-07-10 16:09] LABS: Anion Gap 10 (5-15); Carbon Dioxide 25 mmol/L (20-31); Chloride 106 mmol/L (98-107); Potassium 5.0 mmol/L (3.5-5.1); Sodium 141 mmol/L (136-145)
[2025-07-10 16:10] LABS: Calcium 9.6 mg/dL (8.7-10.4)
[2025-07-10 16:15] LABS: BUN/Creatinine Ratio 29.5 (10.0-20.0)
[2025-07-10 16:16] LABS: Blood Urea Nitrogen 41 mg/dL (9-23); Glucose 110 mg/dL (74-106)
--- NOTE | 2025-07-10 16:21 | DVH ---
CHEST RADIOGRAPH Indication: weakness Technique: XY CHEST PORTABLE COMPARISON: None FINDINGS: The cardiac silhouette is enlarged. The lungs demonstrate bilateral patchy airspace opacities, [id number]. The pulmonary vasculature is prominent. There are small bilateral pleural effusion s. There is no pneumothorax. IMPRESSION: Cardiomegaly with pulmonary vascular congestion and bilateral patchy airspace opacities. Small bilateral pleural effusions.
[2025-07-10 16:29] LABS: Urine Protein, UAD TRACE (Negative)
[2025-07-10] MEDS: LABETALOL HCL 20 MG/4 ML VL IV ONE (20:17)
[2025-07-10 20:45] VITALS: PULSE 94; RESP 17; O2SAT 96
[2025-07-11] VITALS (7 sets, daily range): BP systolic 144–180; BP diastolic 51–91; PULSE 86–111; RESP 17–22; TEMP 97.8–98.6; O2SAT 95–96
--- NOTE | 2025-07-11 03:58 | DVH ---
EXAM: CT HEAD WITHOUT CONTRAST INDICATION: ALOC TECHNIQUE: CT of the head without intravenous contrast. Radiation Dose : 1. Head: CT Dose: CTDI volume is 67.16 mGy. Dose-length product is 1323.26 mGy*cm The dose indicators for CT are the volume Computed Tomography (CT) Dose Index (CTDIvol) and the Dose Length Product (DLP), and are measured in units of mGy and mGy-cm, respectively. These indicators are not patient dose, but values generated from the CT scanner acquisition factors. The report includes radiation exposure data for exposures received during this examination. COMPARISON: CT HEAD WITHOUT CONTRAST on DOS: 01/04/25 FINDINGS: There is no evidence of acute intracranial hemorrhage, extra-axial collection, mass effect, midline s hift, herniation or hydrocephalus. Increased prominence of the ventricles, sulci and cisterns is consistent with the sequelae of atrophi c cortical volume loss. The dhillon-white differentiation is intact. Moderate diffuse confluent periventricular and subcortical white matter hypoattenuation is nonspecifi c but may be related to small vessel ischemic disease. The visualized paranasal sinuses and mastoid air cells are clear. The surrounding soft tissues and osseous structures are unremarkable. IMPRESSION: 1. No acute intracranial abnormality. 2. Chronic sequelae of microangiopathy and atrophic cortical volume loss. Radiation optimization: All CT scans at this facility use at least one of these dose optimization vanesa hniques: automated exposure control mA and/or kV adjustment per patient size (includes targeted exam s where dose is matched to clinical indication) or iterative reconstruction.
[2025-07-11] MEDS: hydrALAZINE HCL 20 MG/ML VL IV ONE (04:03)
[2025-07-11 07:37] LABS: Hematocrit 39.6 % (36.0-46.0); Hemoglobin 12.8 g/dL (12.2-16.2); Mean Corpuscular Hemoglobin 30.0 pg (28.0-32.0); Mean Corpuscular Volume 92.9 fL (80.0-100.0); Nucleated Red Blood Cells % 0.0 %
[2025-07-11 07:50] LABS: Alanine Aminotransferase 20 U/L (7-40); Albumin 4.2 g/dL (3.2-4.8); Anion Gap 9 (5-15); BUN/Creatinine Ratio 17.1 (10.0-20.0); Bilirubin, Total 0.5 mg/dL (0.2-1.0); Calcium 9.8 mg/dL (8.7-10.4); Carbon Dioxide 22 mmol/L (20-31); Sodium 140 mmol/L (136-145)
[2025-07-11 07:51] LABS: Alkaline Phosphatase 153 U/L (46-116); Blood Urea Nitrogen 25 mg/dL (9-23); Chloride 109 mmol/L (98-107); Glucose 174 mg/dL (74-106); Potassium 5.2 mmol/L (3.5-5.1); Total Protein 8.4 g/dL (5.7-8.2)
--- NOTE | 2025-07-11 08:21 | DVHHPRES ---
History of Present Illness Resident Creating Document: NAKITA EATON RESIDENT History of Present Illness History of Present Illness (HPI): Lexi Harris is a 76-year-old female with a complex medical history including hypertension, diabetes mellitus, leukemia, hypothyroidism, dyslipidemia, and osteoarthritis presented to the hospital with complaints of generalized weakness and an inability to walk. She also reported slurring of speech, which was a new symptom for her. At home, her blood glucose level was measured at 70 mg/dL around the time of symptom onset. She denied experiencing any fever, chills, headache, or shortness of breath. Past Medical History (PMH): hypertension, diabetes mellitus, leukemia, hypothyroidism, dyslipidemia, and osteoarthritis Past Surgical History (PSH): Hysterectomy Family history (FH): History of diabetes mellitus in mother EtOH: Patient denies alcohol use Smoking /Vaping: Patient denies smoking Recreational Drugs: Patient denies recreational drug use Residence: Lives with son Home Medications: Lantus, levothyroxine, metoprolol, Lasix, aspirin, gabapentin, clonidine, potassium chloride, atorvastatin Allergies: No known allergies PCP: Dr. Dinh Specialist relevant to admission: Nonrelevant Review of Systems Review of Systems General: patient denies fever, fatigue, weaknes, sweating, any recent changes in appetite and weight HEENT: No headaches, visiual changes, hearing loss, tinnitus, nasal congestion and discharge, and sore throat. Cardiovascular: Denies chest pain, palpitations, dyspnea on exertion, orthopnea, or claudication. Respiratory: No cough, and wheezing. Gastrointestinal: Denies nausea, vomiting, dysphagia, odynophagia, heartburn, abdominal pain, flatulence, bloating, diarrhea, constipation, change in stool, or blood in stool. Genitourinary: No dysuria, hematuria, discharge, frequency, urgency, nocturia, incontinence, and urinary retention. Endocrine: No heat or cold intolerance, polydipsia, polyuria, and polyphagia. Neurological: No dizziness, extremity weakness and numbness, tremors, gait disturbance, seizures, and memory impairment. Psychiatric: Denies depression, anxiety,or insomnia. Musculoskeletal: Denies neck pain, stiffness and swelling, back pain, muscle weakness, joint pain, stiffness, swelling, or limited range of motion. Skin: No rashes, itching, skin lesion, changes in hair, nail, skin texture and breast. Hematologic/Lymphatic: Denies easy bruising, bleeding tendencies, or lymph node enlargement. Allergies: Coded Allergies: NO KNOWN ALLERGIES (Unverified , 01/03/25) Medications Current Medications Medications Dose Ordered Sig/Ash Route Start Time Stop Time Status Last Admin Dose Admin Clonidine HCl 0.2 mg TID PO 07/11/25 05:15 07/11/25 05:35 0.2 MG Exam Vital Signs Vital Signs Date Time Temp Pulse Resp B/P (MAP) Pulse Ox O2 Delivery O2 Flow Rate FiO2 07/11/25 06:49 109 20 180/51 (94) 95 07/11/25 04:00 98.6 98.6 07/10/25 20:45 Room Air* 0 21 Exam General Appearance: Alert, Oriented X3, Cooperative, No acute distress HEENT: Atraumatic, PERRLA, EOMI, Mucous membrane moist/pink Respiratory: Clear to auscultation, Normal air movement Cardiovascular: Regular rate, Normal S1, Normal S2, No murmurs, no chest wall tenderness Abdominal: Normal bowel sounds, Soft, No tenderness, No hepatospenomegaly, No masses Extremities: No clubbing, No cyanosis, No edema, Normal pulses, No tenderness/ swelling Skin: Skin graft on bilateral thighs done 40 years ago Neuro: Normal gait, Normal speech, Strength at 5/5 X4 ext, Normal tone, Sensation intact, Cranial nerves 3-12 NL, Reflexes 2+ Psych/Mental Status: Mental status NL, Mood NL Labs/Xrays Labs Test 07/11/25 07:19 07/10/25 20:13 07/10/25 18:47 07/10/25 15:34 Range/Units White Blood Count 12.2 H 4.4-10.8 10^3/uL Red Blood Count 4.26 4.0-5.20 10^6/uL Hemoglobin 12.8 12.2-16.2 g/dL Hematocrit 39.6 36.0-46.0 % Mean Corpuscular Volume 92.9 80.0-100.0 fL Mean Corpuscular Hemoglobin 30.0 28.0-32.0 pg Mean Corpuscular Hemoglobin Concent 32.3 32.0-36.0 g/dL Red Cell Distribution Width 15.0 H 11.8-14.3 % Platelet Count 309 140-450 10^3/uL Mean Platelet Volume 8.4 6.9-10.8 fL Neutrophils (%) (Auto) 59.5 37.0-80.0 % Lymphocytes (%) (Auto) 28.2 10.0-50.0 % Monocytes (%) (Auto) 7.4 0.0-12.0 % Eosinophils (%) (Auto) 4.4 0.0-7.0 % Basophils (%) (Auto) 0.5 0.0-2.0 % Neutrophils # (Auto) 7.3 1.6-8.6 10 ^3/uL Lymphocytes # (Auto) 3.5 0.4-5.4 10 ^3/uL Monocytes # (Auto) 0.9 0-1.3 10 ^3/uL Eosinophils # (Auto) 0.5 0-0.8 10 ^3/uL Basophils # (Auto) 0.1 0-0.2 10 ^3/uL Nucleated Red Blood Cells 0.0 % Sodium Level 140 136-145 mmol/L Potassium Level 5.2 H 3.5-5.1 mmol/L Chloride Level 109 H 98-107 mmol/L Carbon Dioxide Level 22 20-31 mmol/L Anion Gap 9 5-15 Blood Urea Nitrogen 25 #H 9-23 mg/dL Creatinine 1.46 H 0.550-1.02 mg/dL Glomerular Filtration Rate Calc 38 >90 mL/min BUN/Creatinine Ratio 17.1 10.0-20.0 Serum Glucose 174 H 74-106 mg/dL Calcium Level 9.8 8.7-10.4 mg/dL Total Bilirubin 0.5 0.2-1.0 mg/dL Aspartate Amino Transferase (AST) 18 13-40 U/L Alanine Aminotransferase (ALT) 20 7-40 U/L Alkaline Phosphatase 153 H 46-116 U/L Total Protein 8.4 H 5.7-8.2 g/dL Albumin 4.2 3.2-4.8 g/dL Troponin I High Sensitivity 12 </=34 ng/L POC Glucose 134 H 70-106 mg/dl Urine Color Colorless Yellow Urine Clarity Turbid H Clear Urine pH 6.0 5.0-9.0 Urine Specific [place] 1.009 1.001-1.035 Urine Protein Trace H Negative Urine Ketones Negative Negative Urine Blood Negative Negative /uL Urine Nitrite Negative Negative Urine Bilirubin Negative Negative Urine Urobilinogen Normal Negative mg/dL Urine Leukocyte Esterase Negative Negative /uL Urine RBC 3 0 - 4 /hpf Urine Microscopic WBC 2 0-5 /HPF Urine Squamous Epithelial Cells Few <5 /hpf Urine Bacteria Few H None Seen /hpf Urine Glucose Normal Normal mg/dL SEPSIS Sepsis Screen Date sepsis recognized/suspect: Jul 10, 2025 Time Sepsis recognized/suspect: 2044 Recent Procedure: No On Antibiotic Therapy: No Respiratory Rate >20: Yes Heart Rate >90: Yes Temp<36 C (96.8 F) or >38.3 C: No SBP <90 or MAP <65 mmHG: No New Acute Mental Status Change: No Is the patient on CPAP, BIPAP,: No Physician Orders Head Without Contrast (07/11/25 03:23) Admit (07/11/25 03:23) Oxygen By Nasal Cannula (07/11/25 03:23) Stat Ekg For Chest Pain (07/11/25 03:23) Notify Md Of Changes From Base (07/11/25 03:23) Tonger For 24 Hours (07/11/25 03:23) Emergency Dysrhythmia Protocol (07/11/25 03:23) Rhythm Strips Once Every Shift (07/11/25 03:23) Clonidine Hcl Tablet (Catapres Tablet) (07/11/25 05:15) Vital Signs Date Time Temp Pulse Resp B/P (MAP) Pulse Ox O2 Delivery O2 Flow Rate FiO2 07/11/25 06:49 109 20 180/51 (94) 95 07/11/25 06:48 180/51 07/11/25 05:35 189/55 07/11/25 04:03 179/73 07/11/25 04:00 98.6 100 22 179/73 (108) 95 98.6 07/11/25 04:00 101 07/11/25 02:07 99.1 97 17 182/75 (110) 96 99.1 Laboratory Tests Test 07/11/25 07:19 White Blood Count 12.2 10^3/uL (4.4-10.8) H Medications Medications Dose Ordered Sig/Ash Route Start Time Stop Time Status Last Admin Dose Admin Clonidine HCl 0.2 mg TID PO 07/11/25 05:15 07/11/25 05:35 0.2 MG Hydralazine HCl 5 mg ONCE ONCE IV 07/11/25 03:30 07/11/25 03:31 DC 07/11/25 04:03 5 MG Labetalol HCl 5 mg ONCE ONCE IV 07/10/25 20:15 07/10/25 20:16 DC 07/10/25 20:17 5 MG Assessment/Plan Assessment/Plan Assessment and plan # Metabolic encephalopathy secondary to hypoglycemia - Symptomatic hypoglycemia - Follow Head CT - Telemetry - Follow blood glucose levels - Reassess insulin dosage # Hypertensive crisis - Hydralazine - Restarted clonidine - Metoprolol held due to hypoglycemic episode # Grade 3 obesity - Diet and exercise as tolerated # Type 2 diabetes mellitus - Insulin held due to hypoglycemic episode, reassess insulin dosage # Hypothyroidism - Continue levothyroxine # Dyslipidemia - Continue home medications # Osteoarthritis - Continue home medications # History of leukemia, in remission - Outpatient follow-up with PCP after discharge. PUD prophylaxis: Not needed DVT prophylaxis: brisk movement. Barriers to discharge: Medical diagnosis and management in progress. Patient lives with family. Need wheelchair support for ADL. PCP: Dr. Dinh Specialist Relevent To Admission: Nonrelevant Case discussed with Dr. Villar. Code Status: Full Code. Complex patient care discussion needed. Spend total 35 minutes for bedside assessment, case discussion and management. Plan discussed with: Patient My Orders Orders - NAKITA EATON RESIDENT Procedure Category Date Status Time Head Without Contrast CT 07/11/25 Resulted 03:23 Admit ADMIT 07/11/25 Transmitted 03:23 Oxygen By Nasal RT 07/11/25 Transmitted Cannula 03:23 Stat Ekg For Chest [facility] 07/11/25 In Process Pain 03:23 Notify Of Changes [facility] 07/11/25 In Process From Base 03:23 Tonger For [facility] 07/11/25 In Process 24 Hours 03:23 Emergency Dysrhythmia [facility] 07/11/25 In Process Protocol 03:23 Rhythm Strips Once [facility] 07/11/25 In Process Every Shift 03:23 Clonidine Hcl Tablet [facility] 07/11/25 In Process (Catapres Tablet) 05:15 Date of Service: Jul 11, 2025 Billing Provider: CARMENZA VILLAR MD Common Visit Codes: [id number] INP/OBS CARE (HIGH) Secondary Visit Codes: [id number] CARE PLAN 30 MINUTES NAKITA EATON Jul 11, 2025 08:21 ANTHONY ELLIS RESIDENT Jul 11, 2025 08:37
[2025-07-11] MEDS ORDERED: DEXTROSE (50%) 50ML SYRG IV PRN (10:00)
[2025-07-11] MEDS ORDERED: cloNIDine 0.1 mg/24hr 7 DAY PATCH TD ONE (10:00)
[2025-07-11] MEDS: ACETAMINOPHEN 325 MG TAB PO PRN (10:36)
--- NOTE | 2025-07-11 12:15 | DVHDS2 ---
Discharge Summary Date of Admission Jul 11, 2025 at 03:23 Date of Discharge: Jul 11, 2025 Admitting Diagnosis Hypoglycemia Labs/Diagnostic Data: Laboratory Results Test 07/11/25 07:19 07/10/25 20:13 07/10/25 18:47 07/10/25 15:34 White Blood Count 12.2 10^3/uL (4.4-10.8) Red Blood Count 4.26 10^6/uL (4.0-5.20) Hemoglobin 12.8 g/dL (12.2-16.2) Hematocrit 39.6 % (36.0-46.0) Mean Corpuscular Volume 92.9 fL (80.0-100.0) Mean Corpuscular Hemoglobin 30.0 pg (28.0-32.0) Mean Corpuscular Hemoglobin Concent 32.3 g/dL (32.0-36.0) Red Cell Distribution Width 15.0 % (11.8-14.3) Platelet Count 309 10^3/uL (140-450) Mean Platelet Volume 8.4 fL (6.9-10.8) Neutrophils (%) (Auto) 59.5 % (37.0-80.0) Lymphocytes (%) (Auto) 28.2 % (10.0-50.0) Monocytes (%) (Auto) 7.4 % (0.0-12.0) Eosinophils (%) (Auto) 4.4 % (0.0-7.0) Basophils (%) (Auto) 0.5 % (0.0-2.0) Neutrophils # (Auto) 7.3 10 ^3/uL (1.6-8.6) Lymphocytes # (Auto) 3.5 10 ^3/uL (0.4-5.4) Monocytes # (Auto) 0.9 10 ^3/uL (0-1.3) Eosinophils # (Auto) 0.5 10 ^3/uL (0-0.8) Basophils # (Auto) 0.1 10 ^3/uL (0-0.2) Nucleated Red Blood Cells 0.0 % Sodium Level 140 mmol/L (136-145) Potassium Level 5.2 mmol/L (3.5-5.1) Chloride Level 109 mmol/L (98-107) Carbon Dioxide Level 22 mmol/L (20-31) Anion Gap 9 (5-15) Blood Urea Nitrogen 25 mg/dL (9-23) Creatinine 1.46 mg/dL (0.550-1.02) Glomerular Filtration Rate Calc 38 mL/min (>90) BUN/Creatinine Ratio 17.1 (10.0-20.0) Serum Glucose 174 mg/dL (74-106) Calcium Level 9.8 mg/dL (8.7-10.4) Total Bilirubin 0.5 mg/dL (0.2-1.0) Aspartate Amino Transferase (AST) 18 U/L (13-40) Alanine Aminotransferase (ALT) 20 U/L (7-40) Alkaline Phosphatase 153 U/L (46-116) Total Protein 8.4 g/dL (5.7-8.2) Albumin 4.2 g/dL (3.2-4.8) Troponin I High Sensitivity 12 ng/L (</=34) POC Glucose 134 mg/dl (70-106) Urine Color Colorless (Yellow) Urine Clarity Turbid (Clear) Urine pH 6.0 (5.0-9.0) Urine Specific [place] 1.009 (1.001-1.035) Urine Protein Trace (Negative) Urine Ketones Negative (Negative) Urine Blood Negative /uL (Negative) Urine Nitrite Negative (Negative) Urine Bilirubin Negative (Negative) Urine Urobilinogen Normal mg/dL (Negative) Urine Leukocyte Esterase Negative /uL (Negative) Urine RBC 3 /hpf (0 - 4) Urine Microscopic WBC 2 /HPF (0-5) Urine Squamous Epithelial Cells Few /hpf (<5) Urine Bacteria Few /hpf (None Seen) Urine Glucose Normal mg/dL (Normal) Other Laboratory Tests 07/11/25 07:19 Brief Hx & Hospital Course: Patient is a 75 year-old F with a PMHx of DM2 admitted for altered mental status likely due to hypoglycemia. A1c is 6.9, we will discontinue Glimiperide. Monitor blood sugars at home and adjust insulin accordingly. Patient also has dehydratation and IVF fluids were given. Patient can be discharged home. Condition at Discharge: Poor Final Diagnosis/Problems List # Metabolic encephalopathy secondary to hypoglycemia - Resolved - Reassess insulin dosage # Hypertensive crisis - Hydralazine - Restarted clonidine - Metoprolol held due to hypoglycemic episode # Grade 3 obesity - Diet and exercise as tolerated # Type 2 diabetes mellitus - Insulin held due to hypoglycemic episode, reassess insulin dosage - DC Glimiperide - A1c 6.9 Discharge Disposition: Home Discharge Instruct/Medications Diet: Consistent carbohydrate Activity: Light activity Follow Up/Referral: PCP in 1 week Medications: DC Glimepride Scheduled Albuterol Sulfate (Albuterol Sulfate), 90 MCG PO Q6HR, (Reported) Allopurinol (Allopurinol), 1 TAB PO DAILY, (Reported) Amlodipine Besylate (Amlodipine Besylate), 1 TAB PO DAILY, (Reported) Aspirin (Aspir-Low), 81 MG PO DAILY, (Reported) Atorvastatin Calcium (Atorvastatin Calcium), 20 MG PO DAILY, (Reported) Cholecalciferol (Vitamin D-3), 1,000 UNIT PO DAILY, (Reported) Clonidine Hydrochloride (Clonidine Hcl), 0.2 MG PO TID, (Reported) Diphenhydramine Hcl (Banophen), 25 MG PO Q6HR, (Reported) Gabapentin (Gabapentin), 1 CAP PO TID, (Reported) Glimepiride (Glimepiride), 4 MG PO DAILY, (Reported) Hydrocodone-Acetaminophen (Hydrocodone Bitartrate/AC 10-325 mg), 1 TAB PO Q8HR, (Reported) Insulin Lispro (Humalog Kwikpen), 21 UNIT SC TIDAC, (Reported) Levothyroxine Sodium (Levothyroxine Sodium), 1 TAB PO DAILY, (Reported) Loratadine (Claritin), 1 TAB PO DAILY, (Reported) Metoprolol Succinate (Metoprolol Succinate Er), 1 TAB PO DAILY, (Reported) Potassium Chloride (Potassium Chloride Cr), 8 MEQ PO DAILY, (Reported) Discharge Statement: "Patient was advised to return to the ER or call 911 if any headaches, dizziness, shortness of breath, chest pain, abdominal pain, bleeding, fevers, or worsening of medical condition. Patient was counseled about treatment plan, medications, possible side effects, patientverbalized understanding. All questions were answered to the best of my ability. This discharge took greater then 30 minutes in planning, reviewing documentation, counseling the patient, and discussing with other team members." ASSESSMENT ASSESSMENT Assessment Date of Service: Jul 11, 2025 Billing Provider: CARMENZA SORENSEN MD Common Visit Codes: 43997-WLM/OBS DISCH DAY >30min CARMENZA SORENSEN MD Jul 11, 2025 12:15
[2025-07-11] MEDS: InsuLIN REG 1unit/0.01ml Soln (100units/ml) SC SCH (12:51)
[2025-07-11] MEDS: ACCU-CHEK COMFORT CURVE STRIP VI SCH (12:52)
[2025-07-11] MEDS: CYANOCOBALAMIN (B-12) 1000 MCG/1 ML VIAL IM ONE (13:17)
[2025-07-11] MEDS: SOD CHL 0.45% 1,000 ML IV ONE (13:18)
== END 2025-07-11 16:35 | disposition home or self-care (01) | DRG 637 ==
LOC: ER 14:11 → EDBD 14:11 → OVERFLOW 07-11 03:23
PROVIDERS: ADMIT Internal Medicine; ATTEND Internal Medicine
DX: E11.649 Type 2 diabetes mellitus with hypoglycemia without coma (principal); G93.41 Metabolic encephalopathy; C95.91 Leukemia, unspecified, in remission; I16.9 Hypertensive crisis, unspecified; Z68.43 Body mass index [BMI] 50.0-59.9, adult; I10 Essential (primary) hypertension; E03.9 Hypothyroidism, unspecified; M19.09 Primary osteoarthritis, other specified site; E66.813 Obesity, class 3; E78.5 Hyperlipidemia, unspecified; E86.0 Dehydration; Z79.4 Long term (current) use of insulin; Z79.82 Long term (current) use of aspirin; Z79.899 Other long term (current) drug therapy; Z83.3 Family history of diabetes mellitus
CPT/HCPCS: 36415; 70450; 71045; 80048; 80053; 81001; 82962; 84484; 85025; 96374; 99291; G0378; J1815

== ENCOUNTER 2025-09-19 09:40 | Outpatient (CLI) | payer OTHER, MEDICAID ==
[~2025-09-19 09:40] MED LIST changes: -GLIM4TAB42 PO
[2025-09-19 10:55] LABS: Hematocrit 38.2 % (36.0-46.0); Hemoglobin 12.6 g/dL (12.2-16.2); Mean Corpuscular Hemoglobin 30.0 pg (28.0-32.0); Mean Corpuscular Volume 91.2 fL (80.0-100.0); Nucleated Red Blood Cells % 0.0 %
[2025-09-19 12:01] LABS: Alanine Aminotransferase 30 U/L (7-40); Albumin 4.3 g/dL (3.2-4.8); Anion Gap 11 (5-15); BUN/Creatinine Ratio 25.0 (10.0-20.0); Calcium 9.8 mg/dL (8.7-10.4); Carbon Dioxide 23 mmol/L (20-31); Chloride 105 mmol/L (98-107); Cholesterol 92 mg/dL (< 200); Sodium 139 mmol/L (136-145); Triglycerides 82 mg/dL (< 150)
[2025-09-19 12:02] LABS: Bilirubin, Direct 0.2 mg/dL (<0.3); Bilirubin, Total 0.5 mg/dL (0.2-1.0)
[2025-09-19 12:05] LABS: Alkaline Phosphatase 197 U/L (46-116); Blood Urea Nitrogen 41 mg/dL (9-23); Glucose 222 mg/dL (74-106); HDL Cholesterol 31 mg/dL (40-59); Potassium 5.2 mmol/L (3.5-5.1); Total Protein 8.8 g/dL (5.7-8.2)
== END 2025-09-19 17:00 | disposition home or self-care (01) ==
LOC: LAB 09:40
PROVIDERS: ATTEND Internal Medicine Hematology & Oncology
DX: E11.22 Type 2 diabetes mellitus with diabetic chronic kidney disease (principal); N18.31 Chronic kidney disease, stage 3a; E11.69 Type 2 diabetes mellitus with other specified complication; E03.9 Hypothyroidism, unspecified; H61.23 Impacted cerumen, bilateral; F11.20 Opioid dependence, uncomplicated
CPT/HCPCS: 36415; 80053; 80061; 80076; 82043; 83036; 84439; 84443; 85025

== ENCOUNTER 2025-10-01 09:35 | Outpatient (CLI) | payer OTHER, MEDICAID | END 2025-10-01 17:00 | disposition home or self-care (01) | LOC: LAB 09:35 | PROVIDERS: ATTEND Internal Medicine Hematology & Oncology | DX: Z12.11 Encounter for screening for malignant neoplasm of colon (principal); E11.22 Type 2 diabetes mellitus with diabetic chronic kidney disease; N18.31 Chronic kidney disease, stage 3a; H61.23 Impacted cerumen, bilateral; F11.20 Opioid dependence, uncomplicated | CPT/HCPCS: 82270 ==